=== PATIENT | male | born 1940 | race Caucasian/White ===

== ENCOUNTER → 2017-09-25 | Outpatient (CLI) | payer OTHER ==
[2017-09-25 11:05] LABS: INR 1.8 (0.9-1.1)
--- NOTE | 2017-10-12 08:49 | CODING QUERY NO DIAGNOSIS ---
TREATMENT RENDERED WITHOUT A DIAGNOSIS 39 To promote full compliance with coding requirements relating to patient care, physician participation is requested in all cases of sheeter helper uncertainty. Please assist us with providing a diagnosis/symptom for the test(s) below: A diagnosis/symptom was not documented on your Order. A valid diagnosis/symptom is required to bill all insurances. Please remember that we are unable to code a diagnosis of rule out, probable, possible, questionable, or suspected. DOS 09/25/17 Tests that require a diagnosis: * PT/INR DIAGNOSIS: Provider Signature: Date: Thank you Hannah Remy [facility] Information Management Once completed, please kindly fax back to [phone] For questions please call [phone]
== END | disposition home or self-care (01) ==
LOC: C.LABWYN 09:29
PROVIDERS: ATTEND Internal Medicine
DX: I48.91 Unspecified atrial fibrillation (principal)

== ENCOUNTER → 2017-10-02 | Outpatient (CLI) | payer OTHER ==
[2017-10-02 10:07] LABS: INR 1.6 (0.9-1.1)
== END | disposition home or self-care (01) ==
LOC: C.LABWYN 09:32
PROVIDERS: ATTEND Internal Medicine
DX: I26.99 Other pulmonary embolism without acute cor pulmonale (principal)

== ENCOUNTER → 2017-10-09 | Outpatient (CLI) | payer OTHER ==
[2017-10-09 08:35] LABS: INR 1.7 (0.9-1.1)
== END | disposition home or self-care (01) ==
LOC: C.LABWYN 07:56
PROVIDERS: ATTEND Internal Medicine
DX: I26.99 Other pulmonary embolism without acute cor pulmonale (principal); Z79.01 Long term (current) use of anticoagulants

== ENCOUNTER → 2017-10-11 | Outpatient (CLI) | payer OTHER ==
[2017-10-11 10:24] LABS: INR 1.8 (0.9-1.1)
== END | disposition home or self-care (01) ==
LOC: C.LABWYN 09:05
PROVIDERS: ATTEND Internal Medicine
DX: I48.91 Unspecified atrial fibrillation (principal)

== ENCOUNTER 2019-06-27 13:53 | Inpatient (IN) ==
--- NOTE | 2019-06-27 14:32 | Emergency Department Note ---
History of Present Illness General Chief complaint: Shortness of Breath/Dyspnea Stated complaint: Hypoxia, SOB, GLFx2 Time Seen by Provider: 06/27/19 13:54 Source: patient and EMS Mode of arrival: EMS Limitations: other (Dementia) History of Present Illness Provider complaint: Generalized weakness with fall Onset (ago): hour(s) Location: head Severity: moderate Quality: + other (Week) Exacerbated By: + other (Standing) Associated symptoms: no chest pain, no cough, no fever/chills, no headaches, no nausea/vomiting and no shortness of breath This is a 78-year-old male who presents from [place] via EMS for hypoxia. According to EMS they were transferring the patient when he felt very weak and his legs gave out and he fell but they caught him and he suffered no injury. Buster sethi took his vital signs at the time and noted that his O2 saturation was 85% on room air. He was placed on oxygen when EMS arrived and his O2 saturation went up into the 90s. He normally is not on oxygen and has an O2 saturation in the low 90s on room air. He has no symptoms other than feeling weak. He denies any headache, chest pain, shortness of breath, cough or cold symptoms or vomiting. He denies any injury from the fall. His long term has had several cases of COVID-19. History is somewhat limited due to his dementia. Home Medications Home Medications Medication Instructions Recorded Confirmed Type aspirin 81 mg PO DAILY@79906/27/19 06/27/19 History cholecalciferol (vitamin D3) 25 mcg PO DAILY@79906/27/19 06/27/19 History [Vitamin D3] donepezil 5 mg PO DAILY@79906/27/19 06/27/19 History ferrous gluconate 324 mg PO BID 06/27/19 06/27/19 History magnesium oxide 400 mg PO DAILY@79906/27/19 06/27/19 History oxcarbazepine 150 mg PO BID 06/27/19 06/27/19 History quetiapine 50 mg PO BID 06/27/19 06/27/19 History sennosides [senna] 8.6 mg PO DAILY@79906/27/19 06/27/19 History sildenafil (pulm.hypertension) 20 mg PO TID 06/27/19 06/27/19 History tamsulosin 0.4 mg PO DAILY@0800 06/27/19 06/27/19 History warfarin 6 mg PO HS 06/27/19 06/27/19 History Allergies Allergy/AdvReac Type Severity Reaction Status Date / Time No Known Allergies Allergy Unverified 06/27/19 14:34 Past Med/Surg History Medical History (Updated 06/27/19 @ 17:28 by Vijay Velez MD) Dementia Social History (Updated 06/27/19 @ 14:30 by Vijay Velez MD) Current Living Situation: Assisted Feels Safe at Home: Yes Smoking Status: Never smoker Review of Systems See HPI for pertinent positives & negatives. and A total of 10 systems reviewed and were otherwise negative Physical Exam Vital Signs Vital Signs - 24 hr 06/27/19 13:56 06/27/19 14:05 06/27/19 14:09 Temperature 37.0 C Temperature Source Oral Pulse Rate 95 H 97 H 97 H Pulse Rate from SpO2 Sensor 96 H 97 H Respiratory Rate 19 27 H 27 H Blood Pressure 115/73 115/73 Blood Pressure Mean 87 89 Pulse Oximetry 92 92 92 Oxygen Delivery Method Room Air Room Air Oxygen Flow Rate Sepsis Recent Fever Within 48 Hours Yes Sepsis New/Unexplained Change in Mental Status Yes Sepsis Action Taken by Nursing No Action Required 06/27/19 14:10 06/27/19 14:15 06/27/19 14:16 Temperature Temperature Source Pulse Rate 94 H 96 H Pulse Rate from SpO2 Sensor 94 H 96 H Respiratory Rate 27 H 28 H Blood Pressure 124/69 Blood Pressure Mean 89 Pulse Oximetry 92 92 92 Oxygen Delivery Method Room Air Room Air Oxygen Flow Rate Sepsis Recent Fever Within 48 Hours Sepsis New/Unexplained Change in Mental Status Sepsis Action Taken by Nursing 06/27/19 14:30 06/27/19 14:41 06/27/19 14:45 Temperature Temperature Source Pulse Rate 97 H 92 H Pulse Rate from SpO2 Sensor 96 H 94 H Respiratory Rate 25 H 29 H Blood Pressure 116/71 117/71 Blood Pressure Mean 85 90 Pulse Oximetry 91 92 91 Oxygen Delivery Method Room Air Room Air Oxygen Flow Rate Sepsis Recent Fever Within 48 Hours Sepsis New/Unexplained Change in Mental Status Sepsis Action Taken by Nursing 06/27/19 14:46 06/27/19 15:00 06/27/19 15:01 Temperature Temperature Source Pulse Rate 92 H 88 90 Pulse Rate from SpO2 Sensor Respiratory Rate 32 H 29 H 28 H Blood Pressure 118/71 Blood Pressure Mean 93 Pulse Oximetry 88 L Oxygen Delivery Method Room Air Oxygen Flow Rate Sepsis Recent Fever Within 48 Hours Sepsis New/Unexplained Change in Mental Status Sepsis Action Taken by Nursing 06/27/19 15:03 06/27/19 15:04 06/27/19 15:15 Temperature Temperature Source Pulse Rate 86 Pulse Rate from SpO2 Sensor 91 H Respiratory Rate 27 H Blood Pressure 129/72 Blood Pressure Mean 90 Pulse Oximetry 88 L 92 94 Oxygen Delivery Method Room Air Nasal Cannula Oxygen Flow Rate 2 Sepsis Recent Fever Within 48 Hours Sepsis New/Unexplained Change in Mental Status Sepsis Action Taken by Nursing 06/27/19 15:16 06/27/19 15:30 06/27/19 15:31 Temperature Temperature Source Pulse Rate 85 80 82 Pulse Rate from SpO2 Sensor 86 81 84 Respiratory Rate 26 H 29 H 25 H Blood Pressure 136/87 Blood Pressure Mean 110 Pulse Oximetry 94 95 95 Oxygen Delivery Method Nasal Cannula Nasal Cannula Oxygen Flow Rate 2 2 Sepsis Recent Fever Within 48 Hours Sepsis New/Unexplained Change in Mental Status Sepsis Action Taken by Nursing 06/27/19 15:45 06/27/19 16:00 06/27/19 16:15 Temperature Temperature Source Pulse Rate 81 84 88 Pulse Rate from SpO2 Sensor 81 84 Respiratory Rate 23 22 26 H Blood Pressure 129/79 127/90 124/79 Blood Pressure Mean 104 96 99 Pulse Oximetry 96 96 Oxygen Delivery Method Nasal Cannula Oxygen Flow Rate 2 Sepsis Recent Fever Within 48 Hours Sepsis New/Unexplained Change in Mental Status Sepsis Action Taken by Nursing 06/27/19 16:30 06/27/19 16:31 06/27/19 16:45 Temperature Temperature Source Pulse Rate 110 H 110 H 108 H Pulse Rate from SpO2 Sensor 109 H Respiratory Rate 25 H 20 22 Blood Pressure 169/100 H Blood Pressure Mean 134 Pulse Oximetry 92 Oxygen Delivery Method Oxygen Flow Rate Sepsis Recent Fever Within 48 Hours Sepsis New/Unexplained Change in Mental Status Sepsis Action Taken by Nursing 06/27/19 16:53 Temperature Temperature Source Pulse Rate 101 H Pulse Rate from SpO2 Sensor 98 H Respiratory Rate 24 Blood Pressure 139/81 Blood Pressure Mean 95 Pulse Oximetry 90 Oxygen Delivery Method Oxygen Flow Rate Sepsis Recent Fever Within 48 Hours Sepsis New/Unexplained Change in Mental Status Sepsis Action Taken by Nursing Constitutional: Vital signs reviewed. Eyes: Pupils are equal round reactive to light. Conjunctiva are noninjected. ENT: Pharynx is clear without erythema or exudate. Mucous membranes are moist. Neck supple without meningeal signs. No midline tenderness of cervical spine. Respiratory: Clear to auscultation bilaterally. Breath sounds are equal bilaterally. Cardiovascular: Regular rate and rhythm. No rubs or gallops. GI: Soft, nondistended and nontender. Bowel sounds are present. Musculoskeletal: No peripheral edema. No lower extremity tenderness. No hip tenderness. Integumentary: No cyanosis. or jaundice. Neurological: The patient is awake and alert. No focal deficits. Psychiatric: Normal affect. Not anxious appearing. Medical Decision Making Differential Diagnosis Generalized weakness, infection, pneumonia, UTI, pleural effusion, COVID-19 Medical Records Attestation: I reviewed the patient's medical records. I did perform a limited focused review of portions of the patient's old chart on the electronic medical record. The patient has had no recent pertinent visits to this hospital. Home Medications Current Medication List: was personally reviewed by me Laboratory Data Attestation: I reviewed the patient's lab results. Result diagrams: 06/27/19 14:25 06/27/19 14:25 Lab Results 06/27/19 06/27/19 06/27/19 Range/Units 14:25 14:25 14:25 WBC 8.51 (4.8-10.8) K/uL RBC 5.12 (4.7-6.1) M/uL Hgb 17.1 (14.0-18.0) g/dL Hct 48.4 (42-52) % MCV 94.5 (80-100) fL MCH 33.4 (25-34) pg MCHC 35.3 (32-36) g/dL RDW Std Deviation 45.1 (36.4-46.3) fL RDW Coeff of [place] 13.0 (11.5-14.5) % Plt Count 219 (130-400) K/uL MPV 9.6 (7.4-10.4) fL Immature Gran % (Auto) 0.2 % Neut % (Auto) 83.8 % Lymph % (Auto) 9.6 % [place] % (Auto) 3.8 % Eos % (Auto) 2.2 % Baso % (Auto) 0.4 % Immature Gran # (Auto) 0.02 (0.00-0.02) K/uL Neut # (Auto) 7.13 H (1.4-6.5) K/uL Lymph # (Auto) 0.82 L (1.2-3.4) K/uL [place] # (Auto) 0.32 (0.11-0.59) K/uL Eos # (Auto) 0.19 (0-0.5) K/uL Baso # (Auto) 0.03 (0-0.2) K/uL PT 38.7 H (9.0-12.0) Seconds INR 4.0 H (0.9-1.1) APTT 38.6 H (21.0-31.0) Seconds PTT Ratio 1.4 Sodium 142 (136-145) mmol/L Potassium 3.8 (3.5-5.1) mmol/L Chloride 109 H (98-107) mmol/L Carbon Dioxide 23 (21-32) mmol/L Anion Gap 7.0 (3-11) BUN 13 (7-18) mg/dl Creatinine 1.31 (0.6-1.4) mg/dl Est Cr Clr Drug Dosing 51.2 ml/min Est GFR ( Amer) 59.6 Est GFR (Non-Af Amer) 51.4 BUN/Creatinine Ratio 9.7 L (10-20) Glucose 115 H (70-99) mg/dl Lactate (0.4-2.0) mmol/L Calcium 8.9 (8.5-10.1) mg/dl Magnesium 2.2 (1.8-2.4) mg/dl Total Bilirubin 0.5 (0.2-1) mg/dl AST 12 L (15-37) U/L ALT 15 (12-78) U/L Alkaline Phosphatase 149 H (45-117) U/L Troponin I 0.095 H* (0-0.045) ng/ml Total Protein 7.1 (6.4-8.2) gm/dl Albumin 3.2 L (3.4-5.0) gm/dl Globulin 3.9 (2.5-4.0) gm/dl Albumin/Globulin Ratio 0.8 L (0.9-2) Adenovirus (PCR) (NotDetected) B. pertussis DNA (PCR) (NotDetected) B.parapertussis DNA PCR (NotDetected) C. pneumoniae DNA (PCR) (NotDetected) Coronavirus OC43 (PCR) (NotDetected) Coronavirus HKU1 (PCR) (NotDetected) Coronavirus 229E (PCR) (NotDetected) Coronavirus NL63 (PCR) (NotDetected) Human Metapneumovir PCR (NotDetected) Influenza Type A (PCR) (NotDetected) Influenza Type B (PCR) (NotDetected) M. pneumoniae (PCR) (NotDetected) Parainfluenza 1 (PCR) (NotDetected) Parainfluenza 2 (PCR) (NotDetected) Parainfluenza 3 (PCR) (NotDetected) Parainfluenza 4 (PCR) (NotDetected) RSV (PCR) (NotDetected) Entero/Rhino (PCR) (NotDetected) 06/27/19 06/27/19 Range/Units 14:25 14:25 WBC (4.8-10.8) K/uL RBC (4.7-6.1) M/uL Hgb (14.0-18.0) g/dL Hct (42-52) % MCV (80-100) fL MCH (25-34) pg MCHC (32-36) g/dL RDW Std Deviation (36.4-46.3) fL RDW Coeff of [place] (11.5-14.5) % Plt Count (130-400) K/uL MPV (7.4-10.4) fL Immature Gran % (Auto) % Neut % (Auto) % Lymph % (Auto) % [place] % (Auto) % Eos % (Auto) % Baso % (Auto) % Immature Gran # (Auto) (0.00-0.02) K/uL Neut # (Auto) (1.4-6.5) K/uL Lymph # (Auto) (1.2-3.4) K/uL [place] # (Auto) (0.11-0.59) K/uL Eos # (Auto) (0-0.5) K/uL Baso # (Auto) (0-0.2) K/uL PT (9.0-12.0) Seconds INR (0.9-1.1) APTT (21.0-31.0) Seconds PTT Ratio Sodium (136-145) mmol/L Potassium (3.5-5.1) mmol/L Chloride (98-107) mmol/L Carbon Dioxide (21-32) mmol/L Anion Gap (3-11) BUN (7-18) mg/dl Creatinine (0.6-1.4) mg/dl Est Cr Clr Drug Dosing ml/min Est GFR ( Amer) Est GFR (Non-Af Amer) BUN/Creatinine Ratio (10-20) Glucose (70-99) mg/dl Lactate 2.5 H* (0.4-2.0) mmol/L Calcium (8.5-10.1) mg/dl Magnesium (1.8-2.4) mg/dl Total Bilirubin (0.2-1) mg/dl AST (15-37) U/L ALT (12-78) U/L Alkaline Phosphatase (45-117) U/L Troponin I (0-0.045) ng/ml Total Protein (6.4-8.2) gm/dl Albumin (3.4-5.0) gm/dl Globulin (2.5-4.0) gm/dl Albumin/Globulin Ratio (0.9-2) Adenovirus (PCR) Not Detected (NotDetected) B. pertussis DNA (PCR) Not Detected (NotDetected) B.parapertussis DNA PCR Not Detected (NotDetected) C. pneumoniae DNA (PCR) Not Detected (NotDetected) Coronavirus OC43 (PCR) Not Detected (NotDetected) Coronavirus HKU1 (PCR) Not Detected (NotDetected) Coronavirus 229E (PCR) Not Detected (NotDetected) Coronavirus NL63 (PCR) Not Detected (NotDetected) Human Metapneumovir PCR Not Detected (NotDetected) Influenza Type A (PCR) Not Detected (NotDetected) Influenza Type B (PCR) Not Detected (NotDetected) M. pneumoniae (PCR) Not Detected (NotDetected) Parainfluenza 1 (PCR) Not Detected (NotDetected) Parainfluenza 2 (PCR) Not Detected (NotDetected) Parainfluenza 3 (PCR) Not Detected (NotDetected) Parainfluenza 4 (PCR) Not Detected (NotDetected) RSV (PCR) Not Detected (NotDetected) Entero/Rhino (PCR) Not Detected (NotDetected) Imaging Data Radiologist's Impression: XR chest 1V portable CLINICAL HISTORY: Hypoxia. Possible pneumonia. COMPARISON STUDY: No previous studies for comparison. FINDINGS: The heart is mildly enlarged. There is no failure. There is no lobar consolidation. There are scattered linear opacities likely atelectatic. There is no overt failure. There are no pleural effusions.[ IMPRESSION: Cardiomegaly. No evidence of focal pulmonary consolidation. No evidence of failure. ACT 112: Negative or not required by law. Electronically signed by: Iker Nieves M.D. 06/27/2019 3:04 PM ECG Data Attestation: I personally reviewed and interpreted this ECG as follows: Indication: + weakness Rate (beats per minute): 95 Rhythm: + normal sinus ECG Intervals/blocks: + Right Bundle branch block ECG [place]: + Left axis deviation ECG ST segments: no ST elevation ECG Findings: no PVCs Comparison ECG Date: no prior available Blood Pressure Blood Pressure Findings: Normal blood pressure MDM Narrative I did evaluate the patient as noted above. IV access was established. The patient's O2 saturation is 88% on room air and so he was placed on 2 L nasal cannula. The patient was placed on a continuous environmental monitoring technician. Cardiac monitoring: Indication: Hypoxia Rate and rhythm: Normal sinus rhythm rate of 95. I did order and personally review the patient's 12-lead EKG as described above. He has a right bundle branch block and left axis deviation. No ST elevations are noted. I did order and personally reviewed the images of the patient's chest x-ray as described above. Chest x-ray does not show any signs of pneumonia. I did order a urine analysis. I did order and review the patient's blood work as noted in the electronic medical record. CBC is unremarkable without leukocytosis or anemia. Electrolytes demonstrate a chloride of 109 but otherwise unremarkable. INR is supratherapeutic at 4. He does not have any indication for vitamin K. Troponin is slightly elevated. I did send a bio fire test which was negative for flu and other viruses. I did order a COVID-19 test which is currently pending. I did recommend hospitalization for further care and evaluation. I did speak to the hospitalist and the case monitor. I did speak to Dr. Mcguire who approved the in-house COVID-19 test. Impression & Plan Hypoxia, Supratherapeutic INR, Elevated troponin, Generalized weakness Discharge Plan Visit Data Chief Complaint: Shortness of Breath/Dyspnea Stated Complaint: Hypoxia, SOB, GLFx2 ED Provider: Vijay Velez Discharge Problem: Hypoxia, Supratherapeutic INR, Elevated troponin, Generalized weakness Patient Disposition: Being Evaluated by Hospitalist Condition: Fair Forms Stand Alone Forms: My [facility] Prescriptions Prescriptions: No Action oxcarbazepine 150 mg tablet 150 mg PO BID RF: 0 sennosides [senna] 8.6 mg Tablet 8.6 mg PO DAILY@0800 RF: 0 donepezil 5 mg tablet 5 mg PO DAILY@0800 RF: 0 aspirin 81 mg Tablet,Delayed Release (Dr/Ec) 81 mg PO DAILY@0800 RF: 0 warfarin 6 mg tablet 6 mg PO HS RF: 0 tamsulosin 0.4 mg capsule 0.4 mg PO DAILY@0800 RF: 0 sildenafil (pulm.hypertension) 20 mg Tablet 20 mg PO TID RF: 0 quetiapine 50 mg tablet 50 mg PO BID RF: 0 cholecalciferol (vitamin D3) [Vitamin D3] 25 mcg (1,000 unit) Tablet 25 mcg PO DAILY@0800 RF: 0 ferrous gluconate 324 mg (38 mg iron) Tablet 324 mg PO BID RF: 0 magnesium oxide 400 mg magnesium Tablet 400 mg PO DAILY@0800 RF: 0 Referrals Referrals: [facility] ANNIKA [Primary Care Provider] -
[2019-06-27 14:43] LABS: Basophils # (auto) 0.03 K/uL (0-0.2); Basophils % (auto) 0.4 %; Eosinophils # (auto) 0.19 K/uL (0-0.5); Eosinophils % (auto) 2.2 %; Hematocrit (blood only) 48.4 % (42-52); Hemoglobin 17.1 g/dL (14.0-18.0); Immature Granulocytes # (auto) 0.02 K/uL (0.00-0.02); Immature Granulocytes % (auto) 0.2 %; Lymphocytes # (auto) 0.82 K/uL (1.2-3.4); Lymphocytes % (auto) 9.6 %; Mean Corpuscular Hemoglobin 33.4 pg (25-34); Mean Corpuscular Hgb Conc 35.3 g/dL (32-36); Mean Corpuscular Volume 94.5 fL (80-100); Mean Platelet Volume 9.6 fL (7.4-10.4); Monocytes # (auto) 0.32 K/uL (0.11-0.59); Monocytes % (auto) 3.8 %; Neutrophils # (auto) 7.13 K/uL (1.4-6.5); Neutrophils % (auto) 83.8 %; Platelet Count 219 K/uL (130-400); RDW Standard Deviation 45.1 fL (36.4-46.3); Red Blood Count 5.12 M/uL (4.7-6.1); White Blood Count 8.51 K/uL (4.8-10.8)
[2019-06-27 15:05] LABS: Partial Thromboplastin Ratio 1.4; Partial Thromboplastin Time 38.6 Seconds (21.0-31.0); Prothrombin Time 38.7 Seconds (9.0-12.0)
--- NOTE | 2019-06-27 15:05 | XRay Report ---
XR chest 1V portable CLINICAL HISTORY: Hypoxia. Possible pneumonia. COMPARISON STUDY: No previous studies for comparison. FINDINGS: The heart is mildly enlarged. There is no failure. There is no lobar consolidation. There a re scattered linear opacities likely atelectatic. There is no overt failure. There are no pleural eff usions.[ IMPRESSION: Cardiomegaly. No evidence of focal pulmonary consolidation. No evidence of failure. ACT 112: Negative or not required by law. Electronically signed by: Iker Nieves M.D. 06/27/2019 3:04 PM
[2019-06-27 15:28] LABS: Albumin Globulin Ratio 0.8 (0.9-2); Albumin Level 3.2 gm/dl (3.4-5.0); BUN Creatinine Ratio 9.7 (10-20); Bilirubin,Total 0.5 mg/dl (0.2-1); Calcium 8.9 mg/dl (8.5-10.1); Creatinine Clr Calc Pharmacy 51.2 ml/min; Est GFR (African American) 59.6; Est GFR (Non-African American) 51.4; Globulin 3.9 gm/dl (2.5-4.0); Total Protein 7.1 gm/dl (6.4-8.2); Troponin I 0.095 ng/ml (0-0.045)
[2019-06-27 15:37] LABS: Potassium 3.8 mmol/L (3.5-5.1)
[2019-06-27 15:42] LABS: Magnesium 2.2 mg/dl (1.8-2.4)
[2019-06-27 15:51] LABS: Adenovirus PCR Not Detected (NotDetected); Bordetella parapertussis PCR Not Detected (NotDetected); Bordetella pertussis PCR Not Detected (NotDetected); Chlamydia pneumoniae PCR Not Detected (NotDetected); Coronavirus 229E PCR Not Detected (NotDetected); Coronavirus HKU1 PCR Not Detected (NotDetected); Coronavirus NL63 PCR Not Detected (NotDetected); Coronavirus OC43PCR Not Detected (NotDetected); Human Metapneumovirus PCR Not Detected (NotDetected); Influenza A PCR Not Detected (NotDetected); Influenza B PCR Not Detected (NotDetected); Mycoplasma pneumoniae PCR Not Detected (NotDetected); Parainfluenza Virus 1 PCR Not Detected (NotDetected); Parainfluenza Virus 2 PCR Not Detected (NotDetected); Parainfluenza Virus 3 PCR Not Detected (NotDetected); Parainfluenza Virus 4 PCR Not Detected (NotDetected); Respiratory Syncytial VirusPCR Not Detected (NotDetected); Rhinovirus/Enterovirus PCR Not Detected (NotDetected)
--- NOTE | 2019-06-27 16:21 | Electrocardiogram Report ---
Test Reason : Blood Pressure : / mmHG Vent. 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
--- NOTE | 2019-06-27 16:49 | History & Physical Report ---
Date of Service June 27, 2019 Assessment & Plan (1) Dementia: (2) Hypoxia: (3) Supratherapeutic INR: (4) Elevated troponin: (5) DVT prophylaxis: History of Present Illness Chief Complaint: shortness of breath Primary Care Provider: [facility] Allergies Allergy/AdvReac Type Severity Reaction Status Date / Time No Known Allergies Allergy Unverified 06/27/19 14:34 Home Medications Home Medications Medication Instructions Recorded Confirmed Type aspirin 81 mg PO DAILY@79906/27/19 06/27/19 History cholecalciferol (vitamin D3) 25 mcg PO DAILY@79906/27/19 06/27/19 History [Vitamin D3] donepezil 5 mg PO DAILY@79906/27/19 06/27/19 History ferrous gluconate 324 mg PO BID 06/27/19 06/27/19 History magnesium oxide 400 mg PO DAILY@0806/27/19 06/27/19 History oxcarbazepine 150 mg PO BID 06/27/19 06/27/19 History quetiapine 50 mg PO BID 06/27/19 06/27/19 History sennosides [senna] 8.6 mg PO DAILY@0806/27/19 06/27/19 History sildenafil (pulm.hypertension) 20 mg PO TID 06/27/19 06/27/19 History tamsulosin 0.4 mg PO DAILY@0800 06/27/19 06/27/19 History warfarin 6 mg PO HS 06/27/19 06/27/19 History Past Med/Surg History Medical History (Updated 06/27/19 @ 16:51 by Doreen Ashton DO) Dementia Social History (Updated 06/27/19 @ 14:30 by Vijay Velez MD) Current Living Situation: Long-Term Feels Safe at Home: Yes Smoking Status: Never smoker Results & Data Results & Data ([facility]) Vital Signs (Past 12 Hours) Vital Signs Temp Pulse Resp BP Pulse Ox 06/27/19 16:00 84 22 127/90 96 06/27/19 15:45 81 23 129/79 96 06/27/19 15:31 82 25 H 95 06/27/19 15:30 80 29 H 136/87 95 06/27/19 15:16 85 26 H 94 06/27/19 15:15 86 27 H 129/72 94 06/27/19 15:04 92 06/27/19 15:03 88 L 06/27/19 15:01 90 28 H 88 L 06/27/19 15:00 88 29 H 118/71 06/27/19 14:46 92 H 32 H 06/27/19 14:45 92 H 29 H 117/71 91 06/27/19 14:41 92 06/27/19 14:30 97 H 25 H 116/71 91 06/27/19 14:16 96 H 28 H 92 06/27/19 14:15 94 H 27 H 124/69 92 06/27/19 14:10 92 06/27/19 14:09 97 H 27 H 92 06/27/19 14:05 97 H 27 H 115/73 92 06/27/19 13:56 37.0 C 95 H 19 115/73 92 Laboratory Results Short CBC 06/27/19 06/27/19 06/27/19 Range/Units 14:25 14:25 14:25 WBC 8.51 (4.8-10.8) K/uL RBC 5.12 (4.7-6.1) M/uL Hgb 17.1 (14.0-18.0) g/dL Hct 48.4 (42-52) % MCV 94.5 (80-100) fL MCH 33.4 (25-34) pg MCHC 35.3 (32-36) g/dL RDW Std Deviation 45.1 (36.4-46.3) fL RDW Coeff of Rosendo 13.0 (11.5-14.5) % Plt Count 219 (130-400) K/uL MPV 9.6 (7.4-10.4) fL Immature Gran % (Auto) 0.2 % Neut % (Auto) 83.8 % Lymph % (Auto) 9.6 % [place] % (Auto) 3.8 % Eos % (Auto) 2.2 % Baso % (Auto) 0.4 % Immature Gran # (Auto) 0.02 (0.00-0.02) K/uL Neut # (Auto) 7.13 H (1.4-6.5) K/uL Lymph # (Auto) 0.82 L (1.2-3.4) K/uL [place] # (Auto) 0.32 (0.11-0.59) K/uL Eos # (Auto) 0.19 (0-0.5) K/uL Baso # (Auto) 0.03 (0-0.2) K/uL PT 38.7 H (9.0-12.0) Seconds INR 4.0 H (0.9-1.1) APTT 38.6 H (21.0-31.0) Seconds PTT Ratio 1.4 Sodium 142 (136-145) mmol/L Potassium 3.8 (3.5-5.1) mmol/L Chloride 109 H (98-107) mmol/L Carbon Dioxide 23 (21-32) mmol/L Anion Gap 7.0 (3-11) BUN 13 (7-18) mg/dl Creatinine 1.31 (0.6-1.4) mg/dl Est Cr Clr Drug Dosing 51.2 ml/min Est GFR ( Amer) 59.6 Est GFR (Non-Af Amer) 51.4 BUN/Creatinine Ratio 9.7 L (10-20) Glucose 115 H (70-99) mg/dl Lactate (0.4-2.0) mmol/L Calcium 8.9 (8.5-10.1) mg/dl Magnesium 2.2 (1.8-2.4) mg/dl Total Bilirubin 0.5 (0.2-1) mg/dl AST 12 L (15-37) U/L ALT 15 (12-78) U/L Alkaline Phosphatase 149 H (45-117) U/L Troponin I 0.095 H* (0-0.045) ng/ml Total Protein 7.1 (6.4-8.2) gm/dl Albumin 3.2 L (3.4-5.0) gm/dl Globulin 3.9 (2.5-4.0) gm/dl Albumin/Globulin Ratio 0.8 L (0.9-2) Adenovirus (PCR) (NotDetected) B. pertussis DNA (PCR) (NotDetected) B.parapertussis DNA PCR (NotDetected) C. pneumoniae DNA (PCR) (NotDetected) Coronavirus OC43 (PCR) (NotDetected) Coronavirus HKU1 (PCR) (NotDetected) Coronavirus 229E (PCR) (NotDetected) Coronavirus NL63 (PCR) (NotDetected) Human Metapneumovir PCR (NotDetected) Influenza Type A (PCR) (NotDetected) Influenza Type B (PCR) (NotDetected) M. pneumoniae (PCR) (NotDetected) Parainfluenza 1 (PCR) (NotDetected) Parainfluenza 2 (PCR) (NotDetected) Parainfluenza 3 (PCR) (NotDetected) Parainfluenza 4 (PCR) (NotDetected) RSV (PCR) (NotDetected) Entero/Rhino (PCR) (NotDetected) 06/27/19 06/27/19 Range/Units 14:25 14:25 WBC (4.8-10.8) K/uL RBC (4.7-6.1) M/uL Hgb (14.0-18.0) g/dL Hct (42-52) % MCV (80-100) fL MCH (25-34) pg MCHC (32-36) g/dL RDW Std Deviation (36.4-46.3) fL RDW Coeff of Rosendo (11.5-14.5) % Plt Count (130-400) K/uL MPV (7.4-10.4) fL Immature Gran % (Auto) % Neut % (Auto) % Lymph % (Auto) % [place] % (Auto) % Eos % (Auto) % Baso % (Auto) % Immature Gran # (Auto) (0.00-0.02) K/uL Neut # (Auto) (1.4-6.5) K/uL Lymph # (Auto) (1.2-3.4) K/uL [place] # (Auto) (0.11-0.59) K/uL Eos # (Auto) (0-0.5) K/uL Baso # (Auto) (0-0.2) K/uL PT (9.0-12.0) Seconds INR (0.9-1.1) APTT (21.0-31.0) Seconds PTT Ratio Sodium (136-145) mmol/L Potassium (3.5-5.1) mmol/L Chloride (98-107) mmol/L Carbon Dioxide (21-32) mmol/L Anion Gap (3-11) BUN (7-18) mg/dl Creatinine (0.6-1.4) mg/dl Est Cr Clr Drug Dosing ml/min Est GFR ( Amer) Est GFR (Non-Af Amer) BUN/Creatinine Ratio (10-20) Glucose (70-99) mg/dl Lactate 2.5 H* (0.4-2.0) mmol/L Calcium (8.5-10.1) mg/dl Magnesium (1.8-2.4) mg/dl Total Bilirubin (0.2-1) mg/dl AST (15-37) U/L ALT (12-78) U/L Alkaline Phosphatase (45-117) U/L Troponin I (0-0.045) ng/ml Total Protein (6.4-8.2) gm/dl Albumin (3.4-5.0) gm/dl Globulin (2.5-4.0) gm/dl Albumin/Globulin Ratio (0.9-2) Adenovirus (PCR) Not Detected (NotDetected) B. pertussis DNA (PCR) Not Detected (NotDetected) B.parapertussis DNA PCR Not Detected (NotDetected) C. pneumoniae DNA (PCR) Not Detected (NotDetected) Coronavirus OC43 (PCR) Not Detected (NotDetected) Coronavirus HKU1 (PCR) Not Detected (NotDetected) Coronavirus 229E (PCR) Not Detected (NotDetected) Coronavirus NL63 (PCR) Not Detected (NotDetected) Human Metapneumovir PCR Not Detected (NotDetected) Influenza Type A (PCR) Not Detected (NotDetected) Influenza Type B (PCR) Not Detected (NotDetected) M. pneumoniae (PCR) Not Detected (NotDetected) Parainfluenza 1 (PCR) Not Detected (NotDetected) Parainfluenza 2 (PCR) Not Detected (NotDetected) Parainfluenza 3 (PCR) Not Detected (NotDetected) Parainfluenza 4 (PCR) Not Detected (NotDetected) RSV (PCR) Not Detected (NotDetected) Entero/Rhino (PCR) Not Detected (NotDetected) [facility] 06/27/19 14:25 Sodium 142 Potassium 3.8 Chloride 109 H Carbon Dioxide 23 BUN 13 Creatinine 1.31 Glucose 115 H Calcium 8.9 Cardiac Enzymes 06/27/19 Range/Units 14:25 Troponin I 0.095 H* (0-0.045) ng/ml Liver Function 06/27/19 Range/Units 14:25 Total Bilirubin 0.5 (0.2-1) mg/dl AST 12 L (15-37) U/L ALT 15 (12-78) U/L Alkaline Phosphatase 149 H (45-117) U/L Albumin 3.2 L (3.4-5.0) gm/dl Diagnostic Findings XR chest 1V portable CLINICAL HISTORY: Hypoxia. Possible pneumonia. COMPARISON STUDY: No previous studies for comparison. FINDINGS: The heart is mildly enlarged. There is no failure. There is no lobar consolidation. There are scattered linear opacities likely atelectatic. There is no overt failure. There are no pleural effusions.[ IMPRESSION: Cardiomegaly. No evidence of focal pulmonary consolidation. No evidence of failure.
--- NOTE | 2019-06-27 19:09 | History & Physical Report ---
Date of Service June 27, 2019 Assessment & Plan (1) Generalized weakness: (2) Hypoxia: Patient with generalized weakness and hypoxia prior to admission. Now saturating well on 2 L nasal cannula. Etiology unclear for his weakness at this time. Lactate and troponin elevated upon presentation. Electrolytes and CBC unremarkable. COVID and biofire negative. Patient is a very poor historian and history from [facility] is also limited. Admit to Med/Surg with tele for continued monitoring. (3) Paroxysmal atrial fibrillation: (4) Elevated troponin: (5) Supratherapeutic INR: Hold Coumadin. Metoprolol IV 2.5 mg given now. Fluctuating BP in the ED and history of paroxysmal Afib. Not on rate control chronically. Uncertain as to why he is not typically rate controlled. Check serial troponin. Consider NSTEMI as possible reason for weakness and HTN. Echo ordered. (6) Dementia: Unable to obtain history from patient due to dementia. Uncertain type (7) Abnormal urinalysis: Start Ceftriaxone empirically for now. UTI also possible reason for weakness. Will follow culture. Blood cultures also pending. (8) DVT prophylaxis: On Coumadin- INR 4.0. History of Present Illness Chief Complaint: Hypoxia Primary Care Provider: [facility] Patient is a 78 yo male who presented to the ED from [facility] via EMS for weakness and hypoxia. Per the ED record and EMS, the patient was being transferred this morning when he became weak and his legs gave out. He started to fall, but the assistants caught him. He had no injury at that time. They took his vital signs and was noted to have hypoxia down to 85% on room air. The patient does not usually require O2. EMS was called and O2 was given. He improved on nasal cannula O2. Only symptoms included weakness, but the patient also has dementia and seizure history. He is a very poor historian and does not reliably answer any questions. [facility] has had multiple cases of COVID, but his COVID test in the ED was negative. Biofire negative. CXR unremarkable. BP fluctuating in the ED. HR up to 110 BPM. EKG showed NSR, but patient does have history of AFib. BP up to 165/142 in the ED. Troponin elevated in the ED. Lactate elevated x 2. Allergies Allergy/AdvReac Type Severity Reaction Status Date / Time No Known Allergies Allergy Unverified 06/27/19 14:34 Home Medications Home Medications Medication Instructions Recorded Confirmed Type aspirin 81 mg PO DAILY@79906/27/19 06/27/19 History cholecalciferol (vitamin D3) 25 mcg PO DAILY@79906/27/19 06/27/19 History [Vitamin D3] donepezil 5 mg PO DAILY@79906/27/19 06/27/19 History ferrous gluconate 324 mg PO BID 06/27/19 06/27/19 History magnesium oxide 400 mg PO DAILY@79906/27/19 06/27/19 History oxcarbazepine 150 mg PO BID 06/27/19 06/27/19 History quetiapine 50 mg PO BID 06/27/19 06/27/19 History sennosides [senna] 8.6 mg PO DAILY@79906/27/19 06/27/19 History sildenafil (pulm.hypertension) 20 mg PO TID 06/27/19 06/27/19 History tamsulosin 0.4 mg PO DAILY@79906/27/19 06/27/19 History warfarin 6 mg PO HS 06/27/19 06/27/19 History Past Med/Surg History Medical History (Updated 06/27/19 @ 19:30 by Anisa Todd PA-C) BPH (benign prostatic hyperplasia) CHF (congestive heart failure) Dementia HTN (hypertension) Paroxysmal atrial fibrillation Seizure disorder Social History (Updated 06/27/19 @ 14:30 by Vijay Velez MD) Preferred Language: Moroccan Communication Ability: Effective Facilities Supervisor Required: No Beliefs That Will Affect Care: None Current Living Situation: Personal Care Facility Feels Safe at Home: Yes Safety Concerns: Feels Safe At This Time Smoking Status: Unknown if ever smoked Review of Systems Review of Systems: Unobtainable due to cognitive status Physical Exam Constitutional: well developed and + obese Eyes: PERRL, conjunctivae normal, anicteric sclerae ENMT: external ear and nose normal, oropharynx normal Neck: trachea midline, no thyromegaly Respiratory: + labored breathing (Slightly, increased RR); no retractions, does not use accessory muscles and no cough Auscultation: lungs clear to auscultation bilaterally Cardiovascular: Rate/Rhythm: regular rhythm and + tachycardic Gastrointestinal (Abdomen): Inspection/Auscultation: + abdomen distended Percussion/Palpation: + abdomen tender (mild tenderness in the suprapubic region/LLQ) and abdomen soft Musculoskeletal: No edema in the B/L LE Skin: Flaking skin of the B/L LE. Neurologic: Speech / Cognition: normal speech Motor/Sensory: no tremor Psychiatric: Orientation: alert Affect: + flat affect Patient has poor attention and is very slow to answer questions or respond. Broken thoughts. Results & Data Results & Data ([facility]) Vital Signs (Past 12 Hours) Vital Signs Temp Pulse Pulse Resp BP BP Pulse Ox 06/27/19 18:16 99 H 21 165/142 H 90 06/27/19 18:15 93 H 36 H 88 L 06/27/19 18:00 93 H 27 H 126/84 89 L 06/27/19 17:45 91 H 32 H 135/81 94 06/27/19 17:41 90 32 H 137/71 92 06/27/19 17:30 100 H 35 H 160/122 H 92 06/27/19 17:15 93 H 29 H 91 06/27/19 17:00 36.8 C 89 89 29 H 143/89 H 137/71 93 06/27/19 16:53 101 H 24 139/81 90 06/27/19 16:45 108 H 22 92 06/27/19 16:31 110 H 20 169/100 H 06/27/19 16:30 110 H 25 H 06/27/19 16:15 88 26 H 124/79 06/27/19 16:00 84 22 127/90 96 06/27/19 15:45 81 23 129/79 96 06/27/19 15:31 82 25 H 95 06/27/19 15:30 80 29 H 136/87 95 06/27/19 15:16 85 26 H 94 06/27/19 15:15 86 27 H 129/72 94 06/27/19 15:04 92 06/27/19 15:03 88 L 06/27/19 15:01 90 28 H 88 L 06/27/19 15:00 88 29 H 118/71 06/27/19 14:46 92 H 32 H 06/27/19 14:45 92 H 29 H 117/71 91 06/27/19 14:41 92 06/27/19 14:30 97 H 25 H 116/71 91 06/27/19 14:16 96 H 28 H 92 06/27/19 14:15 94 H 27 H 124/69 92 06/27/19 14:10 92 06/27/19 14:09 97 H 27 H 92 06/27/19 14:05 97 H 27 H 115/73 92 06/27/19 13:56 37.0 C 95 H 19 115/73 92 Laboratory Results Laboratory Results - last 24 hr 06/27/19 06/27/19 06/27/19 14:25 14:25 14:25 WBC 8.51 RBC 5.12 Hgb 17.1 Hct 48.4 MCV 94.5 MCH 33.4 MCHC 35.3 RDW Std Deviation 45.1 RDW Coeff of Rosendo 13.0 Plt Count 219 MPV 9.6 Immature Gran % (Auto) 0.2 Neut % (Auto) 83.8 Lymph % (Auto) 9.6 [place] % (Auto) 3.8 Eos % (Auto) 2.2 Baso % (Auto) 0.4 Immature Gran # (Auto) 0.02 Neut # (Auto) 7.13 H Lymph # (Auto) 0.82 L [place] # (Auto) 0.32 Eos # (Auto) 0.19 Baso # (Auto) 0.03 PT 38.7 H INR 4.0 H APTT 38.6 H PTT Ratio 1.4 Sodium 142 Potassium 3.8 Chloride 109 H Carbon Dioxide 23 Anion Gap 7.0 BUN 13 Creatinine 1.31 Est Cr Clr Drug Dosing 51.2 Est GFR ( Amer) 59.6 Est GFR (Non-Af Amer) 51.4 BUN/Creatinine Ratio 9.7 L Glucose 115 H Lactate Calcium 8.9 Magnesium 2.2 Total Bilirubin 0.5 AST 12 L ALT 15 Alkaline Phosphatase 149 H Troponin I 0.095 H* Total Protein 7.1 Albumin 3.2 L Globulin 3.9 Albumin/Globulin Ratio 0.8 L Urine Color Urine Appearance Urine pH Ur Specific [place] Urine Protein Urine Glucose (UA) Urine Ketones Urine Blood Urine Nitrite Urine Bilirubin Urine Urobilinogen Ur Leukocyte Esterase Urine WBC (Auto) Urine RBC (Auto) U Hyaline Cast (Auto) U Epithel Cells (Auto) Urine Bacteria (Auto) Ur Renal Epithelial Cell Adenovirus (PCR) B. pertussis DNA (PCR) B.parapertussis DNA PCR C. pneumoniae DNA (PCR) Coronavirus OC43 (PCR) Coronavirus HKU1 (PCR) Coronavirus 229E (PCR) COVID-19 PCR Coronavirus NL63 (PCR) Human Metapneumovir PCR Influenza Type A (PCR) Influenza Type B (PCR) M. pneumoniae (PCR) Parainfluenza 1 (PCR) Parainfluenza 2 (PCR) Parainfluenza 3 (PCR) Parainfluenza 4 (PCR) RSV (PCR) Entero/Rhino (PCR) 06/27/19 06/27/19 06/27/19 14:25 14:25 14:25 WBC RBC Hgb Hct MCV MCH MCHC RDW Std Deviation RDW Coeff of Rosendo Plt Count MPV Immature Gran % (Auto) Neut % (Auto) Lymph % (Auto) [place] % (Auto) Eos % (Auto) Baso % (Auto) Immature Gran # (Auto) Neut # (Auto) Lymph # (Auto) [place] # (Auto) Eos # (Auto) Baso # (Auto) PT INR APTT PTT Ratio Sodium Potassium Chloride Carbon Dioxide Anion Gap BUN Creatinine Est Cr Clr Drug Dosing Est GFR ( Amer) Est GFR (Non-Af Amer) BUN/Creatinine Ratio Glucose Lactate 2.5 H* Calcium Magnesium Total Bilirubin AST ALT Alkaline Phosphatase Troponin I Total Protein Albumin Globulin Albumin/Globulin Ratio Urine Color Urine Appearance Urine pH Ur Specific [place] Urine Protein Urine Glucose (UA) Urine Ketones Urine Blood Urine Nitrite Urine Bilirubin Urine Urobilinogen Ur Leukocyte Esterase Urine WBC (Auto) Urine RBC (Auto) U Hyaline Cast (Auto) U Epithel Cells (Auto) Urine Bacteria (Auto) Ur Renal Epithelial Cell Adenovirus (PCR) Not Detected B. pertussis DNA (PCR) Not Detected B.parapertussis DNA PCR Not Detected C. pneumoniae DNA (PCR) Not Detected Coronavirus OC43 (PCR) Not Detected Coronavirus HKU1 (PCR) Not Detected Coronavirus 229E (PCR) Not Detected COVID-19 PCR NEGATIVE Coronavirus NL63 (PCR) Not Detected Human Metapneumovir PCR Not Detected Influenza Type A (PCR) Not Detected Influenza Type B (PCR) Not Detected M. pneumoniae (PCR) Not Detected Parainfluenza 1 (PCR) Not Detected Parainfluenza 2 (PCR) Not Detected Parainfluenza 3 (PCR) Not Detected Parainfluenza 4 (PCR) Not Detected RSV (PCR) Not Detected Entero/Rhino (PCR) Not Detected 06/27/19 06/27/19 16:45 19:00 WBC RBC Hgb Hct MCV MCH MCHC RDW Std Deviation RDW Coeff of Rosendo Plt Count MPV Immature Gran % (Auto) Neut % (Auto) Lymph % (Auto) [place] % (Auto) Eos % (Auto) Baso % (Auto) Immature Gran # (Auto) Neut # (Auto) Lymph # (Auto) [place] # (Auto) Eos # (Auto) Baso # (Auto) PT INR APTT PTT Ratio Sodium Potassium Chloride Carbon Dioxide Anion Gap BUN Creatinine Est Cr Clr Drug Dosing Est GFR ( Amer) Est GFR (Non-Af Amer) BUN/Creatinine Ratio Glucose Lactate 2.3 H* Calcium Magnesium Total Bilirubin AST ALT Alkaline Phosphatase Troponin I Total Protein Albumin Globulin Albumin/Globulin Ratio Urine Color Dark Yellow Urine Appearance Clear Urine pH 6.5 Ur Specific [place] 1.025 Urine Protein 1+ H Urine Glucose (UA) Negative Urine Ketones Trace H Urine Blood Negative Urine Nitrite Negative Urine Bilirubin Negative Urine Urobilinogen Negative Ur Leukocyte Esterase 1+ H Urine WBC (Auto) 5-10 H Urine RBC (Auto) 5-10 H U Hyaline Cast (Auto) 5-10 H U Epithel Cells (Auto) >30 H Urine Bacteria (Auto) Negative Ur Renal Epithelial Cell 0-5 Adenovirus (PCR) B. pertussis DNA (PCR) B.parapertussis DNA PCR C. pneumoniae DNA (PCR) Coronavirus OC43 (PCR) Coronavirus HKU1 (PCR) Coronavirus 229E (PCR) COVID-19 PCR Coronavirus NL63 (PCR) Human Metapneumovir PCR Influenza Type A (PCR) Influenza Type B (PCR) M. pneumoniae (PCR) Parainfluenza 1 (PCR) Parainfluenza 2 (PCR) Parainfluenza 3 (PCR) Parainfluenza 4 (PCR) RSV (PCR) Entero/Rhino (PCR) Diagnostic Findings CXR: IMPRESSION: Cardiomegaly. No evidence of focal pulmonary consolidation. No evidence of failure. Code Status & VTE Plan VTE Prophylaxis Plan VTE Prophylaxis will be ordered: Yes Supervising Physician Co-Signing Physician Notes Patient seen and examined by md, care agreement with Anisa Todd PA-C. Patient is a 78-year-old male with history of dementia, hypertension, paroxysmal A. fib, seizure disorder,?CHF and ? Pulmonary hypertension who presents from [facility] with generalized weakness and hypoxia. SPO2 on room air 85%. Troponin elevated at 0.095, on repeat 6 hours later essentially unchanged at 0.100. Patient was found tachycardic in the 100s to 110s. On EKG normal sinus rhythm, with left axis deviation, RBBB, old inferolateral infarct. Lactate elevated at 2.5, after gentle hydration repeat lactate 1.4. INR was found elevated at 4.0. There were multiple cases of COVID-19 at [facility], and therefore patient was tested. Patient is COVID-19 negative. Bio fire was also obtained and negative. Chest x-ray showed cardiomegaly, but no acute heart failure or pulmonary consolidation. Patient is lying in bed, in no acute distress, however not able to provide thorough history due to dementia. He is currently on 2 L of nasal cannula, his breathing is mildly labored. Lung sounds are clear, without any wheezing, rhonchi or crackles. Heart sounds regular. Abdomen is soft, nontender to palpation, mildly distended, normal bowel sounds. Patient moves extremities spontaneously. Skin and extremities are warm and well-perfused. Patient is not able to answer questions appropriately due to dementia however denies any pain, specifically denies any chest pain, abdominal pain. He does report shortness of breath. Given tachycardia and shortness of breath, PE was considered however his INR is supratherapeutic and therefore PE less likely. No signs of bleeding, will hold Coumadin. 2.5 metoprolol IV was ordered initially however not given as patient's heart rate improved spontaneously. Troponin elevated as mentioned above, possibly due to demand ischemia from his tachycardia, or NSTEMI. We will obtain echocardiogram and will further discuss with cardiology. Lactate mildly elevated, and after gentle hydration down to 1.4. No clear source of infection noted at this point. Blood cultures and urine cultures are pending. UA negative for bacteria or nitrites, positive for leuk esterase. Empiric antibiotics started, will discontinue given the results of cultures. Patient is taking sildenafil, for pulmonary hypertension. Not able to found any documented history of pulmonary hypertension in our EMR. As a [id number] in [facility], there is no medical history, only note from January 2019 when PCPs office was trying to contact the patient and at that time patient told them that he already had a PCP and hung up. I contacted patient's brother Jesse Novoa who is aware of patient being in the hospital and also aware of COVID 19 negative test results. He told me that he took his brother from [facility], and took him to [place]. At that time patient was on supplemental oxygen, but was not willing to use it. Not clear about the diagnosis, however Jesse thought that maybe he had COPD. He also reported that patient was very combative, and eventually ended up in [facility] due to his dementia. He told me that patient's medications comes from [facility] in [place] as he receives bills from there. He also feels that patient is either following PCP in [facility] and/or doctor in [place]. He is not sure about the diagnosis of pulmonary hypertension or if his brother is seeing any specialists. We will call Annalisa mistry again tomorrow during the day and will discuss with medical provider further. Annalisa mistry was contacted today however medical provider was not available, and history provided was very limited. MD Chani
[2019-06-27 19:12] LABS: Appearance Urine Clear (Clear); Bacteria Urine Automated Negative (Negative); Bilirubin Urine Negative (Negative); Blood Urine Negative (Negative); Color Urine Dark Yellow; Epithelial Cell Urine Auto >30 /lpf (0-5); Glucose Urine UA Negative (Negative); Ketones Urine Trace (Negative); Leukocyte Esterase Urine 1+ (Negative); Nitrite Urine Negative (Negative); Protein Urine 1+ (Negative); Specific Gravity Urine 1.025 (1.000-1.030); Urobilinogen Urine Negative (Negative); pH Urine 6.5 (4.5-7.5)
[2019-06-27] MEDS ORDERED: METOPROLOL TARTRATE 1 MG/ML VIAL IV STA (19:20)
[2019-06-27 19:22] LABS: Renal Epithelial Cells Urine 0-5 /lpf (0-5)
[2019-06-27] MEDS ORDERED: ACETAMINOPHEN 325 MG TAB PO PRN (19:46)
[2019-06-27] MEDS: SODIUM CHLORIDE 0.9% 1000ML 1,000 ML IV SCH (20:15)
[2019-06-27] MEDS: cefTRIAXone SODIUM 2,000 MG in DEXTROSE 5% 50 ML IV SCH (20:37)
[2019-06-27] MEDS: SILDENAFIL CITRATE 20 MG TABLET PO SCH (20:41)
[2019-06-27] MEDS: FERROUS GLUCONATE 324 MG TAB PO SCH (20:41)
[2019-06-27] MEDS: OXcarbazepine 150 MG TABLET PO SCH (20:42)
[2019-06-27] MEDS: QUETIAPINE FUMARATE 25 MG TABLET PO SCH (20:42)
[2019-06-28 02:23] LABS: Hematocrit (blood only) 48.1 % (42-52); Hemoglobin 16.8 g/dL (14.0-18.0); Mean Corpuscular Hemoglobin 32.8 pg (25-34); Mean Corpuscular Hgb Conc 34.9 g/dL (32-36); Mean Corpuscular Volume 93.9 fL (80-100); Mean Platelet Volume 9.4 fL (7.4-10.4); Platelet Count 212 K/uL (130-400); RDW Coefficient of Variation 13.3 % (11.5-14.5); RDW Standard Deviation 45.6 fL (36.4-46.3); Red Blood Count 5.12 M/uL (4.7-6.1); White Blood Count 9.52 K/uL (4.8-10.8)
[2019-06-28 02:42] LABS: BUN Creatinine Ratio 10.3 (10-20); Calcium 8.5 mg/dl (8.5-10.1); Creatinine Clr Calc Pharmacy 58.2 ml/min; Est GFR (African American) 66.9; Est GFR (Non-African American) 57.8; Potassium 3.6 mmol/L (3.5-5.1)
[2019-06-28 02:44] LABS: INR 3.9 (0.9-1.1); Prothrombin Time 38.3 Seconds (9.0-12.0)
[2019-06-28] MEDS: SODIUM CHLORIDE 0.9% 1000ML 1,000 ML IV SCH (06:15)
[2019-06-28] MEDS: SILDENAFIL CITRATE 20 MG TABLET PO SCH ×3 (08:59→21:57)
[2019-06-28] MEDS: SENNA 8.6 MG TAB PO SCH (09:00)
[2019-06-28] MEDS: MAGNESIUM OXIDE 400 MG TAB PO SCH (09:00)
[2019-06-28] MEDS: OXcarbazepine 150 MG TABLET PO SCH ×2 (09:00→21:58)
[2019-06-28] MEDS: QUETIAPINE FUMARATE 25 MG TABLET PO SCH ×2 (09:00→21:58)
[2019-06-28] MEDS: CHOLECALCIFEROL 1,000 UNITS 25 MCG TAB PO SCH (09:00)
[2019-06-28] MEDS: ASPIRIN 81 MG ECTAB PO SCH (09:00)
[2019-06-28] MEDS: DONEPEZIL HCL 5 MG TAB PO SCH (09:00)
[2019-06-28] MEDS: TAMSULOSIN HCL 0.4 MG CAP PO SCH (09:00)
[2019-06-28] MEDS: FERROUS GLUCONATE 324 MG TAB PO SCH ×2 (09:00→21:58)
--- NOTE | 2019-06-28 13:55 | CT Scan Report ---
CT chest wo con CLINICAL HISTORY: 78 years-old Male presenting with Hypoxia. TECHNIQUE: Multidetector CT imaging of the chest was performed without the use of intravenous contras t. IV contrast: None. One or more dose lowering techniques were used consistent with the principles o f ALARA (as low as reasonably achievable), including automatic exposure control, mA or kV adjustment to individual patient size, and/or use of iterative reconstruction. COMPARISON: None. CT DOSE (mGy.cm): The estimated cumulative dose is 1505.99 mGy.cm. FINDINGS: Vest Busheler topogram: Unremarkable. Soft tissues: Normal thyroid and thoracic inlet. Gynecomastia. Enlarged mediastinal and right hilar l ymph nodes. Evaluation of the mala limited in the absence of intravenous contrast. Prevascular lymph node measures 9 mm and subcarinal lymph node measures 10 mm. Right hilar lymph node measures 12 mm. A therosclerosis of the aorta. Normal heart size. Coronary artery calcification. No pericardial or pleu ral effusion. Mild esophageal wall thickening is suggested in the mid to distal portion. Lungs and airways: No pneumothorax. Central airways patent. Pulmonary arteries enlarged relative to a djacent bronchi. No interlobular septal thickening. Bandlike and dependent opacities at the lung base s likely atelectasis. Respiratory motion artifact moderately degrades diagnostic sensitivity in the e valuation of the lung parenchyma. Pulmonary nodule cannot be excluded. No convincing evidence of a fo jean carlos infiltrate. Musculoskeletal: Degenerative changes of the spine. IMPRESSION: 1. Moderately degraded evaluation of the lung parenchyma. Allowing for this, no focal consolidation. Limited evaluation for pulmonary nodule. Minimal bibasilar atelectasis. 2. Mild volume overload without evidence of significant congestive change. 3. Mediastinal and right hilar lymphadenopathy. Most of these lymph nodes are subcentimeter though s ome are borderline or truly enlarged. While these are most likely reactive, lymphoproliferative disea se or metastatic disease is difficult to exclude. Correlate for an underlying malignancy. Follow-up c hest CT in 3-6 months with contrast is recommended. 4. Wall thickening of the mid to distal esophagus could indicate esophagitis among other etiologies. Attention on follow-up. Correlate for symptomatology. ACT 112: Negative or not required by law. Electronically signed by: Sorin Howard M.D. 06/28/2019 1:54 PM
[2019-06-28] MEDS ORDERED: FUROSEMIDE 40 MG in SYRINGE 0 ML IV ONE (15:30)
--- NOTE | 2019-06-28 15:34 | Hospitalist Progress Note ---
Date of Service June 28, 2019 Assessment & Plan (1) Generalized weakness: (2) Hypoxia: Acute Diastolic CHF Significant pulmonary hypertension: Hypoxia: Likely due to above Mild Elevation of Troponin: Likely demand ischemia --CT Chest:Moderately degraded evaluation of the lung parenchyma. Allowing for this, no focal consolidation. Limited evaluation for pulmonary nodule. Minimal bibasilar atelectasis. Mild volume overload without evidence of significant congestive change. Mediastinal and right hilar lymphadenopathy. Most of these lymph nodes are subcentimeter though some are borderline or truly enlarged. While these are most likely reactive, lymphoproliferative disease or metastatic disease is difficult to exclude. Correlate for an underlying malignancy. Follow- up chest CT in 3-6 months with contrast is recommended. Wall thickening of the mid to distal esophagus could indicate esophagitis among other etiologies. Attention on follow-up. Correlate for symptomatology. --ECHO: Normal LV chamber size with mild concentric LVH. Normal LV systolic function, EF 55 to 60%. Flattened D-shaped septum consistent with RV pressure/volume overload, otherwise, normal wall motion. Grade 1 diastolic dysfunction. Mild RV chamber dilation with normal systolic function. Aortic valve sclerosis mild, without significant aortic valvular stenosis. Mild mitral regurgitation. Mild tricuspid regurgitation. Mild right atrial enlargement. Significant pulmonary hypertension is present with PASP of 82 mmHg assuming a RA pressure of 3 mmHg. --Start IV Lasix 40mg Daily weight, I/Os, fluid restriction Oxygen support PRN Monitor renal function/electrolytes Check BNP in AM Lymphadenopathy: DD:Reactive, lymphoproliferative disease or metastatic disease Pulmonary nodule CT chest as above COVID and Biofire negative. Check Procalcitonin in AM No focal consolidation on CT scan. Needs repeat CT chest in 3-6 months Lactic Acidosis R/O Infection Possible Sources: Pulm/UTI Blood/Urine Cx:pending Lactate levels normalized with IV fluids Continue Rocephin for now (3) Paroxysmal atrial fibrillation: (4) Elevated troponin: (5) Supratherapeutic INR: H/O Paroxysmal Afib. Not on rate control chronically. Start on Metoprolol Hold Coumadin due to supratherapeutic INR Monitor INR:3.9 (6) Dementia: Unable to obtain history from patient due to dementia. (7) Abnormal urinalysis: as above (8) DVT prophylaxis: Supratherapeutic INR Resume Coumadin as able Admission and Anticipated Discharge Date Admission Date: June 27, 2019 Subjective Patient is seen and examined at bedside Limited history as patient minimally verbal, dementia Has productive cough and is lethargic this morning "I don't feel well" CT chest suggestive of mild volume overload and mediastinal and right hilar lymphadenopathy. Review of Systems Review of Systems: Unobtainable due to cognitive status Physical Exam Physical Exam: Physical Exam: Vitals signs as noted above General Appearance:Moderately built and nourished, no apparent distress Head: normocephalic, Atraumatic Eyes: normal inspection, EOMI Neck: supple, Trachea midline Respiratory/Chest: Decreased breath sounds, CTA, No accessory muscle use Cardiovascular: S1, S2, No murmur Abdomen/GI:Soft, protuberant, Non tender, Bowel sounds present Extremities/Musculoskelatal:normal inspection, no edema Neurologic/Psych:AAOX3, grossly no focal neurological deficits Skin: normal color, warm Results & Data Results & Data ([facility]) Vital Signs (Past 12 Hours) Vital Signs Temp Pulse Pulse Resp BP Pulse Ox 06/28/19 15:00 84 06/28/19 08:00 64 06/28/19 07:00 37.1 C 71 20 135/78 90 Laboratory Results Short CBC 06/28/19 Range/Units 02:02 WBC 9.52 (4.8-10.8) K/uL Hgb 16.8 (14.0-18.0) g/dL Hct 48.1 (42-52) % Plt Count 212 (130-400) K/uL BMP 06/27/19 06/28/19 14:25 02:02 Sodium 142 141 Potassium 3.8 3.6 Chloride 109 H 110 H Carbon Dioxide 23 26 BUN 13 12 Creatinine 1.31 1.19 Glucose 115 H 131 H Calcium 8.9 8.5 Cardiac Enzymes 06/27/19 06/27/19 06/28/19 Range/Units 14:25 20:21 02:02 Troponin I 0.095 H* 0.100 H* 0.101 H* (0-0.045) ng/ml Liver Function 06/27/19 Range/Units 14:25 Total Bilirubin 0.5 (0.2-1) mg/dl AST 12 L (15-37) U/L ALT 15 (12-78) U/L Alkaline Phosphatase 149 H (45-117) U/L Albumin 3.2 L (3.4-5.0) gm/dl Urine 06/27/19 Range/Units 19:00 Urine Color Dark Yellow Urine Appearance Clear (Clear) Urine pH 6.5 (4.5-7.5) Ur Specific [place] 1.025 (1.000-1.030) Urine Protein 1+ H (Negative) Urine Glucose (UA) Negative (Negative)
[2019-06-28] MEDS ORDERED: METOPROLOL TARTRATE 25 MG TAB PO SCH (21:00)
--- NOTE | 2019-06-28 22:02 | Electrocardiogram Report ---
Test Reason : Blood Pressure : / mmHG Vent. Rate : 075 BPM Atrial Rate : 068 BPM P-R Int : 182 ms QRS Dur : 140 ms QT Int : 454 ms P-R-T Axes : 074 -60 -31 degrees QTc Int : 506 ms Poor data quality, interpretation may be adversely affected Normal sinus rhythm Left axis deviation Right bundle branch block Inferior infarct (cited on or before 27-JUN-2019) Abnormal ECG When compared with ECG of 27-JUN-2019 14:14, No significant change Confirmed by Leonid Gambino ([id number]) on 06/28/2019 10:02:36 PM Referred By: [facility] Confirmed By:Leonid Gambino
[2019-06-28] MEDS: cefTRIAXone SODIUM 2,000 MG in DEXTROSE 5% 50 ML IV SCH (22:22)
[2019-06-29 06:08] LABS: Hematocrit (blood only) 45.3 % (42-52); Hemoglobin 15.5 g/dL (14.0-18.0); Mean Corpuscular Hemoglobin 32.5 pg (25-34); Mean Corpuscular Hgb Conc 34.2 g/dL (32-36); Mean Platelet Volume 9.8 fL (7.4-10.4); Platelet Count 192 K/uL (130-400); RDW Coefficient of Variation 13.5 % (11.5-14.5); RDW Standard Deviation 46.6 fL (36.4-46.3); Red Blood Count 4.77 M/uL (4.7-6.1); White Blood Count 7.95 K/uL (4.8-10.8)
[2019-06-29 06:17] LABS: INR 2.3 (0.9-1.1); Prothrombin Time 23.5 Seconds (9.0-12.0)
[2019-06-29 06:37] LABS: BUN Creatinine Ratio 18.5 (10-20); Calcium 8.5 mg/dl (8.5-10.1); Creatinine Clr Calc Pharmacy 66.6 ml/min; Est GFR (African American) 77.9; Est GFR (Non-African American) 67.2; Magnesium 2.2 mg/dl (1.8-2.4); Potassium 3.4 mmol/L (3.5-5.1)
[2019-06-29] MEDS ORDERED: POTASSIUM CHLORIDE 20 MEQ TABCR PO ONE (07:51)
--- NOTE | 2019-06-29 08:48 | Pulmonary Consultation ---
Date of Consultation June 29, 2019 Assessment & Plan (1) Diastolic heart failure: Impression: 78-year-old male admitted with weakness and found to have elevated PA pressures on echocardiogram but the patient is asymptomatic from a pulmonary standpoint. His CT scan does demonstrate some adenopathy. Recommendations: 1. Mediastinal and hilar adenopathy: The clinical significance of this is u nclear. There are no prior imaging studies to review. At this point time I would favor watchful waiting. Given his other medical comorbidities, it may be appropriate not to do anything about this. If an aggressive course is to be pursued, could consider repeat CT scan in 3 to 6months and consideration for PET scan if the adenopathy remains enlarged. Again I would only recommend repeat imaging if the patient is a candidate for other aggressive invasive therapies and diagnostics. 2. Pulmonary hypertension: The patient is [place] Heart Association class 0-I currently with lack of any symptoms. The significance of the echo findings are somewhat unclear. He has multiple etiologies for pulmonary hypertension including mild valvular heart disease and diastolic dysfunction. Chronic thro mboembolic disease appears unlikely given the fact that he is chronically anticoagulated. 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 He is already taking sildenafil 20 mg 3 times a day for pulmonary hypertension although again I do not have access to what prior evaluation was conducted, who initiated this medication, or what follow-up has been in place. Given his advanced age and comorbidities and marginal functional status at baseline I would not recommend aggressive or invasive procedures at this point time. To adequately define his pulmonary hypertension would likely require right heart catheterization which I do not think the patient is a candidate for. Unclear if this is ever been performed previously. Could also consider outpatient pulmonary function testing, sleep study, and arterial blood gas (his serum bicarb is only 26 so hypercarbia appears less likely) although I do not suspect that these would significantly alter the patient's management at this point time and it is unclear again what evaluation he has had prior to this admission. I would favor continued diuretics. If the patient were to develop clinical symptoms consistent with progression of pulmonary hypertension, could consider additional work-up. Patient can follow-up with whichever provider placed him on this medication. From my perspective it is not really indicated however would be reluctant to stop it in the acute setting. 3. Hypoxemia: Likely multifactorial. Given his pulmonary hypertension the possibility of right to left shunt is present. Could consider repeating his echocardiogram with bubble study again however I do not think this would likely alter management so would hold off for now. I think it is reasonable to continue supplemental oxygen in this patient titrated to keep saturations at or above 90%. We will sign off. Feel free to contact us with questions or concerns. (2) Pulmonary hypertension: (3) Abnormal CT scan of lung: History of Present Illness Attending Physician: Lincoln Rodriguez MD History of Present Illness Asked by hospitalist to evaluate patient with pulmonary hypertension. History is obtained from discussion with the hospitalist as well as review the electronic medical record. Patient is a 78-year-old male resides in [facility]. 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 He apparently was brought to the emergency room due to weakness. He was evaluated for COVID-19 and was negative. He was noted to be hypoxemic. A CT scan was performed. The patient is chronically anticoagulated with a therapeutic INR. He had a borderline elevated troponin. An echocardiogram was obtained which demonstrated pulmonary hypertension which prompted a pulmonary consultation. The patient denies any pulmonary complaints. He does not report chest pain or palpitations. No shortness of breath with exertion. He does not have known occupational or environmental exposures. He is not noted significant swelling of his lower extremities but history from the patient is somewhat questionable. Review of the patient's admission records indicate that he is on sildenafil 20 mg 3 times a day for pulmonary hypertension however there is no documentation as to who started this medication, what prior work-up was conducted, or if the patient is followed on a regular basis. Allergies Allergy/AdvReac Type Severity Reaction Status Date / Time No Known Allergies Allergy Unverified 06/27/19 14:34 Home Medications Home Medications Medication Instructions Recorded Confirmed Type aspirin 81 mg PO DAILY@79906/27/19 06/27/19 History cholecalciferol (vitamin D3) 25 mcg PO DAILY@79906/27/19 06/27/19 History [Vitamin D3] donepezil 5 mg PO DAILY@79906/27/19 06/27/19 History ferrous gluconate 324 mg PO BID 06/27/19 06/27/19 History magnesium oxide 400 mg PO DAILY@79906/27/19 06/27/19 History oxcarbazepine 150 mg PO BID 06/27/19 06/27/19 History quetiapine 50 mg PO BID 06/27/19 06/27/19 History sennosides [senna] 8.6 mg PO DAILY@0800 06/27/19 06/27/19 History sildenafil (pulm.hypertension) 20 mg PO TID 06/27/19 06/27/19 History tamsulosin 0.4 mg PO DAILY@0800 06/27/19 06/27/19 History warfarin 6 mg PO HS 06/27/19 06/27/19 History Patient History Medical History (Updated 06/29/19 @ 08:51 by Tang Mcguire MD) BPH (benign prostatic hyperplasia) CHF (congestive heart failure) Dementia HTN (hypertension) Paroxysmal atrial fibrillation Seizure disorder Social History (Updated 06/27/19 @ 14:30 by Vijay Velez MD) Preferred Language: [place] Communication Ability: Impaired Electrical Design Technician Required: No Beliefs That Will Affect Care: None marital status: Single Current Living Situation: Personal Care Facility Feels Safe at Home: Yes Safety Concerns: Feels Safe At This Time Smoking Status: Unknown if ever smoked Review of Systems Review of Systems: Unobtainable due to cognitive status Physical Exam Constitutional: WD/WN, vitals as above Neck: trachea midline, no thyromegaly Respiratory: normal respiratory effort, lungs clear to auscultation Cardiovascular: RRR, no murmur, no edema Gastrointestinal (Abdomen): normal bowel sounds, soft, nontender, no hepatosplenomegaly Musculoskeletal: Extremities: extremities normal to inspection Skin: no rashes, warm and dry Neurologic: Nonfocal exam Lymphatic: no cervical lymphadenopathy Results & Data Results & Data ([facility]) Vital Signs (Past 12 Hours) Vital Signs Temp Pulse Pulse Resp BP Pulse Ox 06/29/19 07:32 74 06/29/19 07:24 38.0 C H 77 20 115/72 94 06/29/19 03:00 36.9 C 78 20 147/82 H 95 06/29/19 00:10 87 06/28/19 23:00 36.6 C 78 20 137/78 93 Laboratory Results 06/29/19 05:33 06/29/19 05:[address] of the chest independently reviewed. There is significant motion artifact which degrades the quality of the image however the pulmonary parenchyma is free of obvious infiltrate. There are some small mediastinal and hilar lymph nodes which appear to have a fatty center. No comparison films. The PA does not appear significantly enlarged. No comparison studies. Echocardiogram from 06/28/2019 showed an ejection fraction of 55 to 60% with a flattened septum. Grade 1 diastolic dysfunction was noted. Mild mitral regurgitation noted with mild right atrial enlargement. Pulmonary arterial pressures estimated at 82 assuming a right atrial pressure of 3 PG Care Time/CCT Total # of Minutes Spent Total Time Spent with Patient: Total time spent is greater than 50% in coordination of care (as documented) at patient's floor/unit and/or counseling patient: Coding Level of Care Code 54825 Initial Inpt Care Lvl 3 Diagnoses Diastolic heart failure I50.30 Pulmonary hypertension I27.[address] scan of lung R91.8 Time Spent (min) 45
--- NOTE | 2019-06-29 09:29 | CT Scan Report ---
CT OF THE ABDOMEN AND PELVIS WITHOUT CONTRAST CLINICAL HISTORY: Abdominal distention, Dysuria COMPARISON STUDY: No previous studies for comparison. TECHNIQUE: Axial images of the abdomen and pelvis were obtained without IV contrast. Images were revi ewed in the axial, sagittal, and coronal planes. Automated exposure control was utilized for the mack dy. A dose lowering technique was utilized adhering to the principles of ALARA. FINDINGS: Imaged portions of the lower chest demonstrate trace bilateral pleural effusions. Evaluatio n of the abdomen and pelvis is suboptimal on this unenhanced examination. A 1.6 cm water attenuation lateral segment hepatic lesion favors a cyst. Unenhanced images of the spleen, adrenal glands and roberson creas are unremarkable. There is no biliary or pancreatic ductal dilatation. No peripancreatic or per icholecystic infiltration is present. No renal, ureteral or bladder calculi are noted. A 6.6 cm water attenuation left renal lesion is suboptimally assessed on this exam but favors a cyst with minimal p eripheral calcification. There is mild bilateral renal cortical thinning. There is no evidence for a bowel obstruction. The appendix is normal. Prostate is mildly enlarged contains multiple calcificatio ns. Right inguinal hernia contains a loop of small bowel. Fat-containing left inguinal hernia is pres ent. No ascites is present. There are no suspicious osseous lesions. IMPRESSION: 1. No urinary calculi or hydronephrosis. 2. Suspected 6.6 cm left renal cyst, suboptimally assessed on this unenhanced exam. 3. Right inguinal hernia contains a loop of small bowel without bowel obstruction. Fat-containing lef t inguinal hernia. ACT 112: Negative or not required by law. Electronically signed by: Tariq Jaquez M.D. 06/29/2019 9:27 AM
[2019-06-29] MEDS: FERROUS GLUCONATE 324 MG TAB PO SCH ×2 (09:40→20:27)
[2019-06-29] MEDS: FUROSEMIDE 20 MG TAB PO SCH (09:40)
[2019-06-29] MEDS: QUETIAPINE FUMARATE 25 MG TABLET PO SCH ×2 (09:40→20:26)
[2019-06-29] MEDS: OXcarbazepine 150 MG TABLET PO SCH ×2 (09:40→20:27)
[2019-06-29] MEDS: ASPIRIN 81 MG ECTAB PO SCH (09:41)
[2019-06-29] MEDS: TAMSULOSIN HCL 0.4 MG CAP PO SCH (09:41)
[2019-06-29] MEDS: CHOLECALCIFEROL 1,000 UNITS 25 MCG TAB PO SCH (09:41)
[2019-06-29] MEDS: MAGNESIUM OXIDE 400 MG TAB PO SCH (09:41)
[2019-06-29] MEDS: DONEPEZIL HCL 5 MG TAB PO SCH (09:41)
[2019-06-29] MEDS: SENNA 8.6 MG TAB PO SCH (09:42)
[2019-06-29] MEDS: SILDENAFIL CITRATE 20 MG TABLET PO SCH ×3 (10:16→20:27)
--- NOTE | 2019-06-29 15:47 | Hospitalist Progress Note ---
Date of Service June 29, 2019 Assessment & Plan (1) Generalized weakness: (2) Hypoxia: Acute Diastolic CHF Significant pulmonary hypertension: Hypoxia: Likely due to above Mild Elevation of Troponin: Likely demand ischemia --CT Chest:Moderately degraded evaluation of the lung parenchyma. Allowing for this, no focal consolidation. Limited evaluation for pulmonary nodule. Minimal bibasilar atelectasis. Mild volume overload without evidence of significant congestive change. Mediastinal and right hilar lymphadenopathy. Most of these lymph nodes are subcentimeter though some are borderline or truly enlarged. While these are most likely reactive, lymphoproliferative disease or metastatic disease is difficult to exclude. Correlate for an underlying malignancy. Follow- up chest CT in 3-6 months with contrast is recommended. Wall thickening of the mid to distal esophagus could indicate esophagitis among other etiologies. Attention on follow-up. Correlate for symptomatology. --ECHO: Normal LV chamber size with mild concentric LVH. Normal LV systolic function, EF 55 to 60%. Flattened D-shaped septum consistent with RV pressure/volume overload, otherwise, normal wall motion. Grade 1 diastolic dysfunction. Mild RV chamber dilation with normal systolic function. Aortic valve sclerosis mild, without significant aortic valvular stenosis. Mild mitral regurgitation. Mild tricuspid regurgitation. Mild right atrial enlargement. Significant pulmonary hypertension is present with PASP of 82 mmHg assuming a RA pressure of 3 mmHg. --Start IV Lasix 40mg Daily weight, I/Os, fluid restriction Oxygen support PRN Monitor renal function/electrolytes Continue Sildenafil May need 2 step prior to discharge Lymphadenopathy: DD:Reactive, lymphoproliferative disease or metastatic disease Pulmonary nodule CT chest as above COVID and Biofire negative. Procalcitonin: normal No focal consolidation on CT scan. Needs repeat CT chest in 3-6 months Lactic Acidosis R/O Infection Unclear source Blood Culture: No growth to date Urine Culture: No growth Lactate levels normalized with IV fluids Empirically on Rocephin Hypokalemia Replace electrolytes as needed Left Renal Cyst --CT ABD: No urinary calculi or hydronephrosis. Suspected 6.6 cm left renal cyst, suboptimally assessed on this unenhanced exam. Right inguinal hernia contains a loop of small bowel without bowel obstruction. Fat-containing left inguinal hernia. --Follow up as outpatient (3) Paroxysmal atrial fibrillation: (4) Elevated troponin: (5) Supratherapeutic INR: H/O Paroxysmal Afib. Not on rate control chronically. Currently in sinus Not on beta-blockers likely due to severe pulm HTN Monitor INR:3.9>>2.3 Resume Coumadin Monitor INR (6) Dementia: Unable to obtain history from patient due to dementia. (7) Abnormal urinalysis: as above (8) DVT prophylaxis: Coumadin Disposition PT/OT prior to discharge Admission and Anticipated Discharge Date Admission Date: June 27, 2019 Subjective Patient is seen and examined at bedside Limited history as patient minimally verbal, dementia More alert, awake today Febrile this AM Denies any chest pain, SOB, abd pain Less cough Review of Systems Review of Systems: All systems reviewed & are unremarkable except as noted in HPI & below Physical Exam Physical Exam: Physical Exam: Vitals signs as noted above General Appearance:Moderately built and nourished, no apparent distress Head: normocephalic, Atraumatic Eyes: normal inspection, EOMI Neck: supple, Trachea midline Respiratory/Chest: Decreased breath sounds, CTA, No accessory muscle use Cardiovascular: S1, S2, No murmur Abdomen/GI:Soft, protuberant, Non tender, Bowel sounds present Extremities/Musculoskelatal:normal inspection, no edema Neurologic/Psych:Oriented to person, grossly no focal neurological deficits Skin: normal color, warm Results & Data Results & Data ([facility]) Vital Signs (Past 12 Hours) Vital Signs Temp Pulse Pulse Resp BP Pulse Ox 06/29/19 12:34 37.2 C 75 18 121/79 91 06/29/19 09:50 37.1 C 06/29/19 07:32 74 06/29/19 07:24 38.0 C H 77 20 115/72 94 Laboratory Results Short CBC 06/29/19 Range/Units 05:33 WBC 7.95 (4.8-10.8) K/uL Hgb 15.5 (14.0-18.0) g/dL Hct 45.3 (42-52) % Plt Count 192 (130-400) K/uL BMP 06/29/19 05:33 Sodium 139 Potassium 3.4 L Chloride 106 Carbon Dioxide 26 BUN 19 H D Creatinine 1.05 Glucose 109 H Calcium 8.5
[2019-06-29] MEDS ORDERED: WARFARIN SOD 3 MG TAB PO SCH (16:00)
[2019-06-29] MEDS: cefTRIAXone SODIUM 2,000 MG in DEXTROSE 5% 50 ML IV SCH (20:34)
[2019-06-30 05:54] LABS: Hematocrit (blood only) 46.9 % (42-52); Mean Corpuscular Hemoglobin 32.7 pg (25-34); Mean Corpuscular Hgb Conc 34.1 g/dL (32-36); Mean Corpuscular Volume 95.7 fL (80-100); Platelet Count 186 K/uL (130-400); RDW Coefficient of Variation 13.5 % (11.5-14.5); RDW Standard Deviation 46.8 fL (36.4-46.3); White Blood Count 6.55 K/uL (4.8-10.8)
[2019-06-30 06:02] LABS: INR 1.7 (0.9-1.1); Prothrombin Time 17.3 Seconds (9.0-12.0)
[2019-06-30 06:21] LABS: BUN Creatinine Ratio 20.5 (10-20); Calcium 8.6 mg/dl (8.5-10.1); Creatinine Clr Calc Pharmacy 66.1 ml/min; Est GFR (African American) 78.8; Potassium 3.7 mmol/L (3.5-5.1)
[2019-06-30] MEDS: DONEPEZIL HCL 5 MG TAB PO SCH (07:39)
[2019-06-30] MEDS: ASPIRIN 81 MG ECTAB PO SCH (07:40)
[2019-06-30] MEDS: TAMSULOSIN HCL 0.4 MG CAP PO SCH (07:40)
[2019-06-30] MEDS: MAGNESIUM OXIDE 400 MG TAB PO SCH (07:40)
[2019-06-30] MEDS: CHOLECALCIFEROL 1,000 UNITS 25 MCG TAB PO SCH (07:41)
[2019-06-30] MEDS: SENNA 8.6 MG TAB PO SCH (07:41)
[2019-06-30] MEDS: SILDENAFIL CITRATE 20 MG TABLET PO SCH ×3 (07:41→20:25)
[2019-06-30] MEDS: FUROSEMIDE 20 MG TAB PO SCH (07:43)
[2019-06-30] MEDS: FERROUS GLUCONATE 324 MG TAB PO SCH ×2 (07:43→20:26)
[2019-06-30] MEDS: OXcarbazepine 150 MG TABLET PO SCH ×2 (07:44→20:25)
[2019-06-30] MEDS: QUETIAPINE FUMARATE 25 MG TABLET PO SCH ×2 (07:44→20:26)
[2019-06-30] MEDS ORDERED: WARFARIN SOD 5 MG TAB PO SCH (16:00)
--- NOTE | 2019-06-30 18:06 | Hospitalist Progress Note ---
Date of Service June 30, 2019 Assessment & Plan (1) Generalized weakness: (2) Hypoxia: Acute Diastolic CHF Significant pulmonary hypertension: Hypoxia: Likely due to above Mild Elevation of Troponin: Likely demand ischemia --CT Chest:Moderately degraded evaluation of the lung parenchyma. Allowing for this, no focal consolidation. Limited evaluation for pulmonary nodule. Minimal bibasilar atelectasis. Mild volume overload without evidence of significant congestive change. Mediastinal and right hilar lymphadenopathy. Most of these lymph nodes are subcentimeter though some are borderline or truly enlarged. While these are most likely reactive, lymphoproliferative disease or metastatic disease is difficult to exclude. Correlate for an underlying malignancy. Follow- up chest CT in 3-6 months with contrast is recommended. Wall thickening of the mid to distal esophagus could indicate esophagitis among other etiologies. Attention on follow-up. Correlate for symptomatology. --ECHO: Normal LV chamber size with mild concentric LVH. Normal LV systolic function, EF 55 to 60%. Flattened D-shaped septum consistent with RV pressure/volume overload, otherwise, normal wall motion. Grade 1 diastolic dysfunction. Mild RV chamber dilation with normal systolic function. Aortic valve sclerosis mild, without significant aortic valvular stenosis. Mild mitral regurgitation. Mild tricuspid regurgitation. Mild right atrial enlargement. Significant pulmonary hypertension is present with PASP of 82 mmHg assuming a RA pressure of 3 mmHg. --Continue Lasix 40mg Daily weight, I/Os, fluid restriction Oxygen support PRN Monitor renal function/electrolytes Continue Sildenafil Will get 2 step prior to discharge Will repeat CXR in AM Lymphadenopathy: DD:Reactive, lymphoproliferative disease or metastatic disease Pulmonary nodule CT chest as above COVID and Biofire negative. Procalcitonin: normal No focal consolidation on CT scan. Needs repeat CT chest in 3-6 months Lactic Acidosis R/O Infection No Obvious source of Infection Blood Culture: No growth to date Urine Culture: No growth Lactate levels normalized with IV fluids IV Abx discontinued Hypokalemia Replace electrolytes as needed Left Renal Cyst --CT ABD: No urinary calculi or hydronephrosis. Suspected 6.6 cm left renal cyst, suboptimally assessed on this unenhanced exam. Right inguinal hernia contains a loop of small bowel without bowel obstruction. Fat-containing left inguinal hernia. --Follow up as outpatient (3) Paroxysmal atrial fibrillation: (4) Elevated troponin: (5) Supratherapeutic INR: H/O Paroxysmal Afib. Not on rate control chronically. Currently in sinus Not on beta-blockers likely due to severe pulm HTN Monitor INR:3.9>>2.3>>1.7 Increase Coumadin to 5mg today Monitor INR (6) Dementia: Unable to obtain history from patient due to dementia. (7) Abnormal urinalysis: as above (8) DVT prophylaxis: Coumadin Disposition Likely discharge tomorrow back to [facility]. Admission and Anticipated Discharge Date Admission Date: June 27, 2019 Subjective Patient is seen and examined at bedside Limited history as patient minimally verbal, dementia Afebrile today Appears to be comfortable lying in bed without any distress Denies any chest pain, shortness of breath We will plan to repeat chest x-ray in the morning Still requiring supplemental oxygen to maintain sats. Review of Systems Review of Systems: Other Limited due to Dementia Physical Exam Physical Exam: Physical Exam: Vitals signs as noted above General Appearance:Moderately built and nourished, no apparent distress Head: normocephalic, Atraumatic Eyes: normal inspection, EOMI Neck: supple, Trachea midline Respiratory/Chest: Decreased breath sounds, CTA, No accessory muscle use Cardiovascular: S1, S2, No murmur Abdomen/GI:Soft, protuberant, Non tender, Bowel sounds present Extremities/Musculoskelatal:normal inspection, no edema Neurologic/Psych:Oriented to person, grossly no focal neurological deficits Skin: normal color, warm Results & Data Results & Data ([facility]) Vital Signs (Past 12 Hours) Vital Signs Temp Pulse Pulse Resp BP Pulse Ox 06/30/19 15:49 37.0 C 76 18 122/77 95 06/30/19 14:53 76 06/30/19 12:17 37.3 C 76 18 93 06/30/19 08:00 66 06/30/19 07:55 36.3 C L 67 20 131/85 96 06/30/19 07:27 66 Laboratory Results Short CBC 06/30/19 Range/Units 05:19 WBC 6.55 (4.8-10.8) K/uL Hgb 16.0 (14.0-18.0) g/dL Hct 46.9 (42-52) % Plt Count 186 (130-400) K/uL BMP 06/30/19 05:19 Sodium 140 Potassium 3.7 Chloride 106 Carbon Dioxide 26 BUN 21 H Creatinine 1.04 Glucose 92 Calcium 8.6
[2019-06-30] MEDS ORDERED: FUROSEMIDE 20 MG TAB PO ONE (18:15)
[2019-07-01 06:35] LABS: INR 1.6 (0.9-1.1); Prothrombin Time 16.1 Seconds (9.0-12.0)
[2019-07-01 06:58] LABS: BUN Creatinine Ratio 22.3 (10-20); Calcium 8.6 mg/dl (8.5-10.1); Creatinine Clr Calc Pharmacy 68.7 ml/min; Est GFR (African American) 82.6; Est GFR (Non-African American) 71.3; Potassium 3.6 mmol/L (3.5-5.1)
--- NOTE | 2019-07-01 07:25 | XRay Report ---
XR chest 1V portable CLINICAL HISTORY: 78 years-old Male presenting with Hypoxia, Pulm HTN. TECHNIQUE: Portable upright AP view of the chest was obtained. COMPARISON: CT from 06/28/2019 and chest x-ray from 06/27/2019. FINDINGS: Atherosclerosis of the aortic arch. Cardiac silhouette enlarged. Mild pulmonary vascular prominence i n the right upper lung as on prior exam. Prominence of the main pulmonary artery. Mildly low lung vol umes. Persistent bandlike opacity in the left midlung. Slight increase in left basilar opacity. Under lying trace left pleural effusion not excluded. No pneumothorax. Degenerative changes of the thoracic spine. External leads project over the upper abdomen. IMPRESSION: 1. Prominence of the main pulmonary artery suggests pulmonary hypertension. 2. Cardiomegaly. 3. Slight increase in left basilar atelectasis. Trace left effusion not excluded. ACT 112: Negative or not required by law. Electronically signed by: Sorin Howard M.D. 07/01/2019 7:23 AM
[2019-07-01] MEDS: SILDENAFIL CITRATE 20 MG TABLET PO SCH ×2 (08:43→15:31)
[2019-07-01] MEDS: CHOLECALCIFEROL 1,000 UNITS 25 MCG TAB PO SCH (08:43)
[2019-07-01] MEDS: MAGNESIUM OXIDE 400 MG TAB PO SCH (08:43)
[2019-07-01] MEDS: SENNA 8.6 MG TAB PO SCH (08:43)
[2019-07-01] MEDS: DONEPEZIL HCL 5 MG TAB PO SCH (08:43)
[2019-07-01] MEDS: ASPIRIN 81 MG ECTAB PO SCH (08:43)
[2019-07-01] MEDS: TAMSULOSIN HCL 0.4 MG CAP PO SCH (08:43)
[2019-07-01] MEDS: QUETIAPINE FUMARATE 25 MG TABLET PO SCH (08:44)
[2019-07-01] MEDS: OXcarbazepine 150 MG TABLET PO SCH (08:44)
[2019-07-01] MEDS: FERROUS GLUCONATE 324 MG TAB PO SCH (08:44)
[2019-07-01] MEDS ORDERED: FUROSEMIDE 40 MG TAB PO SCH (09:00)
--- NOTE | 2019-07-01 14:55 | Hospitalist Progress Note ---
Date of Service July 01, 2019 Assessment & Plan (1) Generalized weakness: (2) Hypoxia: Acute Diastolic CHF Significant pulmonary hypertension: Hypoxia: Likely due to above Mild Elevation of Troponin: Likely demand ischemia --CT Chest:Moderately degraded evaluation of the lung parenchyma. Allowing for this, no focal consolidation. Limited evaluation for pulmonary nodule. Minimal bibasilar atelectasis. Mild volume overload without evidence of significant congestive change. Mediastinal and right hilar lymphadenopathy. Most of these lymph nodes are subcentimeter though some are borderline or truly enlarged. While these are most likely reactive, lymphoproliferative disease or metastatic disease is difficult to exclude. Correlate for an underlying malignancy. Follow- up chest CT in 3-6 months with contrast is recommended. Wall thickening of the mid to distal esophagus could indicate esophagitis among other etiologies. Attention on follow-up. Correlate for symptomatology. --ECHO: Normal LV chamber size with mild concentric LVH. Normal LV systolic function, EF 55 to 60%. Flattened D-shaped septum consistent with RV pressure/volume overload, otherwise, normal wall motion. Grade 1 diastolic dysfunction. Mild RV chamber dilation with normal systolic function. Aortic valve sclerosis mild, without significant aortic valvular stenosis. Mild mitral regurgitation. Mild tricuspid regurgitation. Mild right atrial enlargement. Significant pulmonary hypertension is present with PASP of 82 mmHg assuming a RA pressure of 3 mmHg. --Continue Lasix 40mg Daily weight, I/Os, fluid restriction Oxygen support PRN Monitor renal function/electrolytes Continue Sildenafil Plan to discharge on supplemental oxygen Needs follow up with Pulmonology/Cardiology as outpatient Lymphadenopathy: DD:Reactive, lymphoproliferative disease or metastatic disease Pulmonary nodule CT chest as above COVID and Biofire negative. Procalcitonin: normal No focal consolidation on CT scan. Needs repeat CT chest in 3-6 months Lactic Acidosis R/O Infection No Obvious source of Infection Blood Culture: No growth to date Urine Culture: No growth Lactate levels normalized with IV fluids IV Abx discontinued Hypokalemia Replace electrolytes as needed Left Renal Cyst --CT ABD: No urinary calculi or hydronephrosis. Suspected 6.6 cm left renal cyst, suboptimally assessed on this unenhanced exam. Right inguinal hernia contains a loop of small bowel without bowel obstruction. Fat-containing left inguinal hernia. --Follow up as outpatient (3) Paroxysmal atrial fibrillation: (4) Elevated troponin: (5) Supratherapeutic INR: H/O Paroxysmal Afib. Not on rate control chronically. Currently in sinus Not on beta-blockers likely due to severe pulm HTN Monitor INR:3.9>>2.3>>1.6 Increase Coumadin to 6mg today Monitor INR (6) Dementia: Unable to obtain history from patient due to dementia. (7) Abnormal urinalysis: as above (8) DVT prophylaxis: Coumadin Disposition Plan to discharge back to [facility] today Admission and Anticipated Discharge Date Admission Date: June 27, 2019 Subjective Patient is seen and examined at bedside Limited history as patient minimally verbal, dementia Sitting in chair comfortably Offers no complaints Denies any chest pain, SOB, abd pain Plan to discharge on Supplemental oxygen Review of Systems Review of Systems: All systems reviewed & are unremarkable except as noted in HPI & below Physical Exam Physical Exam: Physical Exam: Vitals signs as noted above General Appearance:Moderately built and nourished, no apparent distress Head: normocephalic, Atraumatic Eyes: normal inspection, EOMI Neck: supple, Trachea midline Respiratory/Chest: Decreased breath sounds, CTA, No accessory muscle use Cardiovascular: S1, S2, No murmur Abdomen/GI:Soft, protuberant, Non tender, Bowel sounds present Extremities/Musculoskelatal:normal inspection, no edema Neurologic/Psych:Oriented to person, grossly no focal neurological deficits Skin: normal color, warm Results & Data Results & Data ([facility]) Vital Signs (Past 12 Hours) Vital Signs Temp Pulse Pulse Pulse Pulse Pulse Pulse 07/01/19 13:34 36.5 C 07/01/19 11:34 36.5 C 07/01/19 11:29 74 87 80 67 07/01/19 08:00 36.7 C 07/01/19 07:14 82 07/01/19 03:49 37.8 C H 84 Pulse Resp Resp Resp Resp Resp BP 07/01/19 13:34 80 18 106/62 07/01/19 11:34 80 18 106/62 07/01/19 11:29 18 18 18 18 07/01/19 08:00 74 18 110/73 07/01/19 07:14 07/01/19 03:49 18 105/67 Pulse Ox Pulse Ox Pulse Ox Pulse Ox Pulse Ox 07/01/19 13:34 92 07/01/19 11:34 92 07/01/19 11:29 92 91 91 87 L 07/01/19 08:00 98 07/01/19 07:14 07/01/19 03:49 92 Laboratory Results BMP 07/01/19 05:49 Sodium 139 Potassium 3.6 Chloride 103 Carbon Dioxide 27 BUN 22 H Creatinine 1.00 Glucose 108 H Calcium 8.6
--- NOTE | 2019-07-01 15:03 | Discharge Summary ---
Date of Service July 01, 2019 Admission HPI Per Admitting Provider Chief Complaint: Hypoxia [facility] Patient is a 78 yo male who presented to the ED from [facility] via EMS for weakness and hypoxia. Per the ED record and EMS, the patient was being transferred this morning when he became weak and his legs gave out. He started to fall, but the assistants caught him. He had no injury at that time. They took his vital signs and was noted to have hypoxia down to 85% on room air. The patient does not usually require O2. EMS was called and O2 was given. He improved on nasal cannula O2. Only symptoms included weakness, but the patient also has dementia and seizure history. He is a very poor historian and does not reliably answer any questions. Isis has had multiple cases of COVID, but his COVID test in the ED was negative. Biofire negative. CXR unremarkable. BP fluctuating in the ED. HR up to 110 BPM. EKG showed NSR, but patient does have history of AFib. BP up to 165/142 in the ED. Troponin elevated in the ED. Lactate elevated x 2. Admission Exam Per Admitting Provider Physical Exam Constitutional: well developed and + obese Eyes: PERRL, conjunctivae normal, anicteric sclerae ENMT: external ear and nose normal, oropharynx normal Neck: trachea midline, no thyromegaly Respiratory: + labored breathing (Slightly, increased RR); no retractions, does not use accessory muscles and no cough Auscultation: lungs clear to auscultation bilaterally Cardiovascular: Rate/Rhythm: regular rhythm and + tachycardic Gastrointestinal (Abdomen): Inspection/Auscultation: + abdomen distended Percussion/Palpation: + abdomen tender (mild tenderness in the suprapubic region/LLQ) and abdomen soft Musculoskeletal: No edema in the B/L LE Skin: Flaking skin of the B/L LE. Neurologic: Speech / Cognition: normal speech Motor/Sensory: no tremor Psychiatric: Orientation: alert Affect: + flat affect Patient has poor attention and is very slow to answer questions or respond. Broken thoughts. Principal Diagnosis Acute Diastolic CHF Significant pulmonary hypertension Hypoxia Lymphadenopathy Left Renal Cyst Discharge Data Allergies Allergy/AdvReac Type Severity Reaction Status Date / Time No Known Allergies Allergy Unverified 06/27/19 14:34 Consultations 06/27/19 15:59 ED Decision to Admit Stat 06/27/19 19:46 Consult Case Management - Discharge Planning Routine 06/29/19 08:00 Consult Pulmonology Routine Procedures Performed -CT Chest:Moderately degraded evaluation of the lung parenchyma. Allowing for this, no focal consolidation. Limited evaluation for pulmonary nodule. Minimal bibasilar atelectasis. Mild volume overload without evidence of significant congestive change. Mediastinal and right hilar lymphadenopathy. Most of these lymph nodes are subcentimeter though some are borderline or truly enlarged. While these are most likely reactive, lymphoproliferative disease or metastatic disease is difficult to exclude. Correlate for an underlying malignancy. Follow- up chest CT in 3-6 months with contrast is recommended. Wall thickening of the mid to distal esophagus could indicate esophagitis among other etiologies. Attention on follow-up. Correlate for symptomatology. --ECHO: Normal LV chamber size with mild concentric LVH. Normal LV systolic function, EF 55 to 60%. Flattened D-shaped septum consistent with RV pressure/volume overload, otherwise, normal wall motion. Grade 1 diastolic dysfunction. Mild RV chamber dilation with normal systolic function. Aortic valve sclerosis mild, without significant aortic valvular stenosis. Mild mitral regurgitation. Mild tricuspid regurgitation. Mild right atrial enlargement. Significant pulmonary hypertension is present with PASP of 82 mmHg assuming a RA pressure of 3 mmHg. -CT ABD: No urinary calculi or hydronephrosis. Suspected 6.6 cm left renal cyst, suboptimally assessed on this unenhanced exam. Right inguinal hernia contains a loop of small bowel without bowel obstruction. Fat-containing left inguinal hernia. Ordered Studies 06/28/19 12:00 CT chest wo con Routine 06/28/19 17:44 CT abd pelvis wo con Routine Hospital Course (1) Generalized weakness: (2) Hypoxia: Acute Diastolic CHF Significant pulmonary hypertension: Hypoxia: Likely due to above Mild Elevation of Troponin: Likely demand ischemia --CT Chest:Moderately degraded evaluation of the lung parenchyma. Allowing for this, no focal consolidation. Limited evaluation for pulmonary nodule. Minimal bibasilar atelectasis. Mild volume overload without evidence of significant congestive change. Mediastinal and right hilar lymphadenopathy. Most of these lymph nodes are subcentimeter though some are borderline or truly enlarged. While these are most likely reactive, lymphoproliferative disease or metastatic disease is difficult to exclude. Correlate for an underlying malignancy. Follow- up chest CT in 3-6 months with contrast is recommended. Wall thickening of the mid to distal esophagus could indicate esophagitis among other etiologies. Attention on follow-up. Correlate for symptomatology. --ECHO: Normal LV chamber size with mild concentric LVH. Normal LV systolic function, EF 55 to 60%. Flattened D-shaped septum consistent with RV pressure/volume overload, otherwise, normal wall motion. Grade 1 diastolic dysfunction. Mild RV chamber dilation with normal systolic function. Aortic valve sclerosis mild, without significant aortic valvular stenosis. Mild mitral regurgitation. Mild tricuspid regurgitation. Mild right atrial enlargement. Significant pulmonary hypertension is present with PASP of 82 mmHg assuming a RA pressure of 3 mmHg. --Continue Lasix 40mg Daily weight, I/Os, fluid restriction Oxygen support PRN Monitor renal function/electrolytes Continue Sildenafil Plan to discharge on supplemental oxygen Needs follow up with Pulmonology/Cardiology as outpatient Lymphadenopathy: DD:Reactive, lymphoproliferative disease or metastatic disease Pulmonary nodule CT chest as above COVID and Biofire negative. Procalcitonin: normal No focal consolidation on CT scan. Needs repeat CT chest in 3-6 months Lactic Acidosis R/O Infection No Obvious source of Infection Blood Culture: No growth to date Urine Culture: No growth Lactate levels normalized with IV fluids IV Abx discontinued Hypokalemia Replace electrolytes as needed Left Renal Cyst --CT ABD: No urinary calculi or hydronephrosis. Suspected 6.6 cm left renal cyst, suboptimally assessed on this unenhanced exam. Right inguinal hernia contains a loop of small bowel without bowel obstruction. Fat-containing left inguinal hernia. --Follow up as outpatient (3) Paroxysmal atrial fibrillation: (4) Elevated troponin: (5) Supratherapeutic INR: H/O Paroxysmal Afib. Not on rate control chronically. Currently in sinus Not on beta-blockers likely due to severe pulm HTN Monitor INR:3.9>>2.3>>1.6 Increase Coumadin to 6mg today Monitor INR (6) Dementia: Unable to obtain history from patient due to dementia. (7) Abnormal urinalysis: as above (8) DVT prophylaxis: Coumadin Disposition Plan to discharge back to [facility] today Total Time Total Time Spent Total Time Spent (In Minutes): 40 minutes Total Time Includes: Examination of the Patient, Discharge Planning, Medication Reconciliation, Communication With Other Providers and Other Discharge Plan Discharge Items Patient Disposition: Personal [facility] Reason For Visit: HYPOXIA Discharge Diagnosis: Acute Diastolic CHF Significant pulmonary hypertension Hypoxia Lymphadenopathy Left Renal Cyst Condition on Discharge: Fair Activity: Resume your previous activity Exercise/Sports: Gradually increase as tolerated Non-emergency contact: Primary Care Provider, [place] Attorney and Network Developer Call non-emergency contact if: you have any medication questions, your symptoms worsen, your pain is not controlled, your pain is worsening, your pain is unusual for you, your pain is concerning for you and you have a fever Follow-up/Referrals: [facility] ANNIKA CONNOLLY [Primary Care Provider] - Diet: Heart Healthy Diet Texture: Dental soft (bite-sized) Ambulatory Orders: Prothrombin Time INR (Routine) Timeframe: 1 Day Location: Determined by Patient Ordered By: Lincoln Duncan Attending Provider Instructions: Follow-up with your primary care physician in 1 week Follow-up with your engine repairer production, monumental stonemason for further evaluation of lymphadenopathy and significant pulmonary hypertension Follow-up with your urologist for evaluation of left renal cyst. Get repeat CT chest in 3-6 months as recommended by your Network Developer. Use oxygen 2 L via nasal cannula at all times. Your blood cultures are pending at the time of discharge. Follow-up with your physician for results. Get PT/INR on July 02, 2019 and follow-up with you your physician for Coumadin dosing. Seek immediate medical attention if your symptoms reoccur or worsen Call your Primary Care doctor if any of the following symptoms or problems start or get worse: * Shortness of breath or difficulty breathing * Wake up at night short of breath * Chest pain * Cough * Swelling of your hands, feet, or legs * More fatigued or tired with your normal activity * Palpitations - sudden fast heart beats WEIGHT * Weigh yourself every morning after using the bathroom. * Use the same scale. * Wear the same amount of clothing. * Write your weight down on a chart. * Call your Primary Care doctor if you gain more than 2-3 pounds in 1-2 days. MEDICATIONS * Use this discharge instruction sheet for medication instructions. * Take your medications at the time your doctor ordered. * Do not skip a dose of your medicines. * If you miss a dose of medicine, take it as soon as possible, but DO NOT DOUBLE A DOSE. * Read your medicine information when you get home. * Know all of the side effects of your medicine. If in doubt, ask your pharmacist * Call your Primary Care doctor's office if you have any side effects. * Be sure all of your doctors know what medicine and herbs you take (including cold, flu, and herbal medicine). Take the following with you to your follow-up doctor appointments: * Weight Chart * Medication List * List of questions Do not drink excessive alcohol, beer or wine. Pending Studies at Discharge: Yes Studies:: Blood Cultures Stand-Alone Forms: [facility] Meme Apps, Smoking Cessation Skilled Items Patient informed of condition?: Yes DNR: No Discharge Level of Care: Skilled Communicable Disease: No Discharge Prognosis: Stable Lines: None Urinary Catheter: No Medications and DC Order Prescriptions: New furosemide 40 mg Tablet 40 mg PO QAM Qty: 30 RF: 0 Continued oxcarbazepine 150 mg tablet 150 mg PO BID RF: 0 sennosides [senna] 8.6 mg Tablet 8.6 mg PO DAILY@0800 RF: 0 donepezil 5 mg tablet 5 mg PO DAILY@0800 RF: 0 aspirin 81 mg Tablet,Delayed Release (Dr/Ec) 81 mg PO DAILY@0800 RF: 0 warfarin 6 mg tablet 6 mg PO HS RF: 0 tamsulosin 0.4 mg capsule 0.4 mg PO DAILY@0800 RF: 0 sildenafil (pulm.hypertension) 20 mg Tablet 20 mg PO TID RF: 0 quetiapine 50 mg tablet 50 mg PO BID RF: 0 cholecalciferol (vitamin D3) [Vitamin D3] 25 mcg (1,000 unit) Tablet 25 mcg PO DAILY@0800 RF: 0 ferrous gluconate 324 mg (38 mg iron) Tablet 324 mg PO BID RF: 0 magnesium oxide 400 mg magnesium Tablet 400 mg PO DAILY@0800 RF: 0 Discharge Orders: Discharge Order (Routine); Ordered 07/01/19 Ordered By: Lincoln Rodriguez Admission Data Admit Date/Time: 06/27/19 16:57 Attending Provider: Lincoln Rodriguez Admit Provider: Doreen Ashton Primary Care Provider: [facility] AN[facility] CONNOLLY Other Providers: Doreen Ashton ; Tang Mcguire Other Interventions: Discharge Summary Assessment (RN) Last Done: 07/01/19 13:34 DC Date/Time DO NOT enter until pt leaves facility: 07/01/19 16:44
[2019-07-01] MEDS ORDERED: WARFARIN SOD 6 MG TAB PO SCH (16:00)
== END 2019-07-01 16:44 | disposition home or self-care (01) | DRG 292 ==
LOC: ED 13:53 → SUATTDRO 16:57 → 2N 16:57